=== PATIENT | female | born 2000 | race Caucasian/White ===

== ENCOUNTER 2024-01-21 05:58 | Emergency (ER) | payer OTHER, SELFPAY ==
[2024-01-21 06:03] VITALS: BP 101/61; PULSE 74; RESP 16; TEMP 36.9; O2SAT 98; BMI 24.6
--- NOTE | 2024-01-21 06:09 | ED_ITS ---
HPI - Abdominal Pain General Time Seen by Provider: 06:09 <Santos Coleman MD - Last Filed: 01/21/24 07:59> Date Seen: 01/21/24 <Santos Coleman MD - Last Filed: 01/21/24 07:59> Chief Complaint: Abdominal Pain <Santos Coleman MD - Last Filed: 01/21/24 07:59> Stated Complaint: Abdominal pain, nausea <Santos Coleman MD - Last Filed: 01/21/24 07:59> Time Seen by Provider: 01/21/24 06:08 <Santos Coleman MD - Last Filed: 01/21/24 07:59> Source: patient, RN notes reviewed and old records reviewed <Santos Coleman MD - Last Filed: 01/21/24 07:59> Mode of arrival: ambulatory <Santos Coleman MD - Last Filed: 01/21/24 07:59> Limitations: no limitations <Santos Coleman MD - Last Filed: 01/21/24 07:59> History of Present Illness HPI narrative: 23-year-old female who comes in today with abdominal pain. She describes cramping low abdominal pain that woke her this morning. She reports this is somewhat similar to menstrual cramps but much more severe. She has some nausea but no vomiting. Has not taken anything for this. Denies urinary symptoms, diarrhea, or constipation. She does note that she ate a couple small pieces summer all mushrooms that some friends found. <Santos Coleman MD - Last Filed: 01/21/24 07:59> Related Data Home Medications: Previous Rx's Medication Instructions Recorded ketorolac 10 mg tablet 10 mg PO Q8H 5 days #15 tabs 01/21/24 <Santos Coleman MD - Last Filed: 01/21/24 07:59> Allergies/Adverse Reactions: Allergies Allergy/AdvReac Type Severity Reaction Status Date / Time No Known Drug Allergies Allergy Verified 01/21/24 06:06 <Santos Coleman MD - Last Filed: 01/21/24 07:59> PFS PFSH Social History: Social History Smoking Status: Never smoker How often do you have a drink containing alcohol: monthly or less AUDIT-C Alcohol total score: 1 Non-prescribed substance use: denies use <Santos Coleman MD - Last Filed: 01/21/24 07:59> Exam Narrative: Exam Narrative: General: Well-developed and well-nourished, no acute distress Head: Atraumatic and normocephalic Eyes: Pupils are equal reactive, extraocular motions intact, conjunctiva clear ENT: External nose and ears are normal, posterior pharynx without erythema or exudate Neck: No midline cervical tenderness, full spontaneous range of motion the neck, trachea midline, no adenopathy Heart: Regular rate and rhythm no murmurs or thrills Lungs: Clear to auscultation bilaterally without wheezes or crackles Abdomen: Soft, suprapubic tenderness and bilateral lower quadrant tenderness, nondistended with active bowel sounds Musculoskeletal: No tenderness, deformity, or edema Neurologic: Awake, alert, and oriented x3, no gross focal neurologic deficits, cranial nerves intact as tested Psych: Mood and affect are appropriate Skin: No rashes <Santos Coleman MD - Last Filed: 01/21/24 07:59> Const: Vital Signs, click to edit/add: Vital Signs - 24 hr 01/21/24 06:03 Temperature 98.4 F Pulse Rate [Pulse Oximeter] 74 Respiratory Rate 16 Blood Pressure [Ri ght Upper Arm] 101/61 Pulse Oximetry 98 Oxygen Delivery Me thod Room Air <Santos Coleman MD - Last Filed: 01/21/24 07:59> Vital Signs, click to edit/add: Vital Signs - 24 hr 01/21/24 06:03 Temperature 98.4 F Pulse Rate [Pulse Oximeter] 74 Respiratory Rate 16 Blood Pressure [Ri ght Upper Arm] 101/61 Pulse Oximetry 98 Oxygen Delivery Me thod Room Air <Peter Mccauley MD - Last Filed: 01/21/24 08:57> Course Course ED Course: Patient seen and examined, prior records reviewed. Patient presents today with low abdominal pain along with some nausea. She describes pain as cramping. On exam here, patient's vital is stable, no apparent distress but does have bilateral lower abdominal tenderness and suprapubic tenderness. Labs ordered and CT scan initially, however uterine ovarian pathology also possible so consider follow-up ultrasound if CT scan does not demonstrate acute findings to explain symptoms. <Santos Coleman MD - Last Filed: 01/21/24 07:59> Reevaluation(s) Time of Reevaluation #1: 06:47 <Santos Coleman MD - Last Filed: 01/21/24 07:59> Reevaluation #1: Labs ordered in panel interpreted by me with normal CBC, normal basic panel, negative test, no evidence for urinary tract infection. <Santos Coleman MD - Last Filed: 01/21/24 07:59> Time of Reevaluation #2: 07:58 <Santos Coleman MD - Last Filed: 01/21/24 07:59> Reevaluation #2: Radiology interpretation CT scan with 2.4 cm right adnexal cyst, pelvic free-fluid peritoneal enhancement which could be related to ruptured cyst versus inflammatory process. Ultrasound ordered and sign out to oncoming provider. Updated patient with findings so far with, plan for ultrasound. Pain is improved. <Santos Coleman MD - Last Filed: 01/21/24 07:59> Vital Signs Vital signs: Initial Vital Signs Temperature 98.4 F 01/21/24 06:03 Temperature Source Temporal Artery Scan 01/21/24 06:03 Pulse Rate 74 01/21/24 06:03 Respiratory Rate 16 01/21/24 06:03 Blood Pressure 101/61 01/21/24 06:03 Blood Pressure Mean 74 01/21/24 06:03 Blood Pressure Position Sitting 01/21/24 06:03 Pulse Oximetry 98 01/21/24 06:03 Oxygen Delivery Method Room Air 01/21/24 06:03 Vital Signs Temperature 98.4 F 01/21/24 06:03 Pulse Rate 74 01/21/24 06:03 Respiratory Rate 16 01/21/24 06:03 Blood Pressure 101/61 01/21/24 06:03 Pulse Oximetry 98 01/21/24 06:03 Oxygen Delivery Method Room Air 01/21/24 06:03 Temperature 98.4 F 01/21/24 06:03 Pulse Rate 74 01/21/24 06:03 Respiratory Rate 16 01/21/24 06:03 Blood Pressure 101/61 01/21/24 06:03 Pulse Oximetry 98 01/21/24 06:03 Oxygen Delivery Method Room Air 01/21/24 06:03 <Santos Coleman MD - Last Filed: 01/21/24 07:59> Initial Vital Signs Temperature 98.4 F 01/21/24 06:03 Temperature Source Temporal Artery Scan 01/21/24 06:03 Pulse Rate 74 01/21/24 06:03 Respiratory Rate 16 01/21/24 06:03 Blood Pressure 101/61 01/21/24 06:03 Blood Pressure Mean 74 01/21/24 06:03 Blood Pressure Position Sitting 01/21/24 06:03 Pulse Oximetry 98 01/21/24 06:03 Oxygen Delivery Method Room Air 01/21/24 06:03 Vital Signs Temperature 98.4 F 01/21/24 06:03 Pulse Rate 74 01/21/24 06:03 Respiratory Rate 16 01/21/24 06:03 Blood Pressure 101/61 01/21/24 06:03 Pulse Oximetry 98 01/21/24 06:03 Oxygen Delivery Method Room Air 01/21/24 06:03 Temperature 98.4 F 01/21/24 06:03 Pulse Rate 74 01/21/24 06:03 Respiratory Rate 16 01/21/24 06:03 Blood Pressure 101/61 01/21/24 06:03 Pulse Oximetry 98 01/21/24 06:03 Oxygen Delivery Method Room Air 01/21/24 06:03 <Peter Mccauley MD - Last Filed: 01/21/24 08:57> Medications Administered Medications: Discontinued Medications Generic Name Dose Route Start Last Admin Trade Name Freq PRN Reason Stop Dose Admin Ketorolac Tromethamine 15 mg 01/21/24 06:16 01/21/24 06:20 Ketorolac 15 Mg/Ml Inj IVP 01/21/24 06:17 15 mg ONCE ONE Administration Ondansetron HCl 4 mg 01/21/24 06:16 01/21/24 06:20 Ondansetron 2 Mg/Ml Inj IVP 01/21/24 06:17 4 mg ONCE ONE Administration <Santos Coleman MD - Last Filed: 01/21/24 07:59> Discontinued Medications Generic Name Dose Route Start Last Admin Trade Name Freq PRN Reason Stop Dose Admin Ketorolac Tromethamine 15 mg 01/21/24 06:16 01/21/24 06:20 Ketorolac 15 Mg/Ml Inj IVP 01/21/24 06:17 15 mg ONCE ONE Administration Ondansetron HCl 4 mg 01/21/24 06:16 01/21/24 06:20 Ondansetron 2 Mg/Ml Inj IVP 01/21/24 06:17 4 mg ONCE ONE Administration <Peter Mccauley MD - Last Filed: 01/21/24 08:57> MDM - Abdominal Pain MDM Narrative Medical decision making narrative: Care for this patient was transferred to pa at the end of Dr. Coleman's shift. An ultrasound of the pelvis is obtained by transvaginal approach and does show evidence of a hemorrhagic cyst on the left side. There is no other complication her findings of concern. Patient is okay to be discharged home. She did receive a prescription for Toradol. Dr. Guzman Mccauley <Peter Mccauley MD - Last Filed: 01/21/24 08:57> Lab Data Labs: Lab Results 01/21/24 01/21/24 01/21/24 Range/Units 06:16 06:20 06:25 WBC 7.97 (4.50-11.00) K/uL RBC 4.45 (4.00-5.20) m/uL Hgb 13.9 (12.0-16.0) gm/dL Hct 40.6 (33.0-51.0) % MCV 91 (80-100) fL MCH 31 (26-34) pg MCHC 34 (32-36) gm/dL RDW Coeff of Nelson 13.0 (11.5-15.5) % Plt Count 225 (140-440) K/uL Neut % (Auto) 46.7 (42.0-72.0) % Lymph % (Auto) 45.0 H (20-44) % [place] % (Auto) 5.6 (0.0-11.0) % Eos % (Auto) 1.8 (0.0-7.0) % Baso % (Auto) 0.3 (0.0-3.0) % Neut # (Auto) 3.72 (1.7-7.0) K/uL Lymph # (Auto) 3.60 H (0.90-2.90) K/uL [place] # (Auto) 0.40 (0.00-0.90) K/UL Eos # (Auto) 0.14 (0.00-0.50) K/uL Baso # (Auto) 0.02 (0.00-0.30) K/uL Abs Immat Gran (auto) 0.05 (0.00-0.30) K/uL Imm/Tot Granulo (auto) 0.6 % Sodium 140 (135-149) mmol/L Potassium 4.2 (3.6-5.1) mmol/L Chloride 106 (96-114) mmol/L Carbon Dioxide 26 (20-32) mmol/L Anion Gap 8 (7-15) mEq/L BUN 14 (5-24) mg/dL Creatinine 0.6 (0.5-1.5) mg/dL Estimated Creat Clear 111.92 Estimated GFR 131 ml/min Glucose 109 (60-115) mg/dL Calcium 8.8 (8.4-10.6) mg/dL HCG, Qual Cancelled Urine Color Yellow (Yellow) Urine Appearance Clear (Clear) Urine pH 6.0 (5.0-8.5) Ur Specific [place] 1.015 (1.000-1.030) Urine Protein Negative (Negative) Urine Glucose (UA) Negative (Negative) Urine Ketones Negative (Negative) Urine Blood Negative (Negative) Urine Nitrite Negative (Negative) Urine Bilirubin Negative (Negative) Urine Urobilinogen 0.2 (0.2-1.0) Ur Leukocyte Esterase Negative (Negative) Urine RBC 0-2 (0-2) Urine WBC 0-2 (0-5) Ur Squamous Epith Cells Few (None-Few) Urine Bacteria Few A (None) Urine HCG, Qual Negative (Negative) <Santos Coleman MD - Last Filed: 01/21/24 07:59> Lab Results 01/21/24 01/21/24 01/21/24 Range/Units 06:16 06:20 06:25 WBC 7.97 (4.50-11.00) K/uL RBC 4.45 (4.00-5.20) m/uL Hgb 13.9 (12.0-16.0) gm/dL Hct 40.6 (33.0-51.0) % MCV 91 (80-100) fL MCH 31 (26-34) pg MCHC 34 (32-36) gm/dL RDW Coeff of Nelson 13.0 (11.5-15.5) % Plt Count 225 (140-440) K/uL Neut % (Auto) 46.7 (42.0-72.0) % Lymph % (Auto) 45.0 H (20-44) % [place] % (Auto) 5.6 (0.0-11.0) % Eos % (Auto) 1.8 (0.0-7.0) % Baso % (Auto) 0.3 (0.0-3.0) % Neut # (Auto) 3.72 (1.7-7.0) K/uL Lymph # (Auto) 3.60 H (0.90-2.90) K/uL [place] # (Auto) 0.40 (0.00-0.90) K/UL Eos # (Auto) 0.14 (0.00-0.50) K/uL Baso # (Auto) 0.02 (0.00-0.30) K/uL Abs Immat Gran (auto) 0.05 (0.00-0.30) K/uL Imm/Tot Granulo (auto) 0.6 % Sodium 140 (135-149) mmol/L Potassium 4.2 (3.6-5.1) mmol/L Chloride 106 (96-114) mmol/L Carbon Dioxide 26 (20-32) mmol/L Anion Gap 8 (7-15) mEq/L BUN 14 (5-24) mg/dL Creatinine 0.6 (0.5-1.5) mg/dL Estimated Creat Clear 111.92 Estimated GFR 131 ml/min Glucose 109 (60-115) mg/dL Calcium 8.8 (8.4-10.6) mg/dL HCG, Qual Cancelled Urine Color Yellow (Yellow) Urine Appearance Clear (Clear) Urine pH 6.0 (5.0-8.5) Ur Specific [place] 1.015 (1.000-1.030) Urine Protein Negative (Negative) Urine Glucose (UA) Negative (Negative) Urine Ketones Negative (Negative) Urine Blood Negative (Negative) Urine Nitrite Negative (Negative) Urine Bilirubin Negative (Negative) Urine Urobilinogen 0.2 (0.2-1.0) Ur Leukocyte Esterase Negative (Negative) Urine RBC 0-2 (0-2) Urine WBC 0-2 (0-5) Ur Squamous Epith Cells Few (None-Few) Urine Bacteria Few A (None) Urine HCG, Qual Negative (Negative) <Peter Mccauley MD - Last Filed: 01/21/24 08:57> Discharge Plan Discharge Clinical Impression: Ruptured cyst of left ovary <Santos Coleman MD - Last Filed: 01/21/24 07:59> Patient Disposition: Home, Self-Care <Santos Coleman MD - Last Filed: 01/21/24 07:59> Condition: Improved <Santos Coleman MD - Last Filed: 01/21/24 07:59> Additional Instructions: Take medication as needed and indicated. Follow-up with OBGYN Clinic if not improving or worsening. <Santos Coleman MD - Last Filed: 01/21/24 07:59> Prescriptions: New ketorolac 10 mg tablet 10 mg PO Q8H 5 Days Qty: 15 0RF <Santos Coleman MD - Last Filed: 01/21/24 07:59> Follow Up/Referrals: Provider,Not a Local [Primary Care Provider] - <Santos Coleman MD - Last Filed: 01/21/24 07:59> Stand Alone Forms: [employer] Info Instructions <Santos Coleman MD - Last Filed: 01/21/24 07:59>
--- NOTE | 2024-01-21 06:16 | CT_ITS ---
Patient: MAC ODOM Facility:?[facility] Patient ID:?[id number] Site Patient ID:?[id number]. Site :?2002 Study:?CT-Abdomen/Pelvis W/64CC [id number]/18/2024 7:07:02 AM Ordering Physician:WANDA Final Report: INDICATION: Low abdomen pain TECHNIQUE: CT abdomen and pelvis acquired with 64 mL Isovue 370 IV contrast. COMPARISON: None. FINDINGS: Lower chest: Unremarkable. Liver: Unremarkable. Normal in size and attenuation. No masses. Gallbladder and bile ducts: Unremarkable. No stones or inflammation. No biliary dilatation. Pancreas: Unremarkable. No mass or inflammation. Spleen: Unremarkable. Normal in size. No masses. Adrenal glands: Unremarkable. No nodules. Kidneys: Unremarkable. No masses, stones, or hydronephrosis. GI tract: Unremarkable. Normal in caliber. No sign of mass or inflammation. Appendix is not clearly visible. Vasculature: Unremarkable. Mesenteric arteries are patent. Lymph nodes: No lymphadenopathy. Omentum/Peritoneum/Abdominal Wall: Small to moderate pelvic free fluid with some enhancement of the surrounding peritoneum. Pelvis: Subtle 2.4 cm right adnexal cyst image 105 series 2. IUD in the uterus. Bones: Unremarkable for age. IMPRESSION: 1. Pelvic free fluid and peritoneal enhancement and subtle right adnexal cyst. Findings could indicate a ruptured cyst or pelvic inflammatory process. Recommend pelvic ultrasound. Please note that all CT scans at this facility use dose modulation, iterative reconstruction, and/or weight-based dosing when appropriate to reduce radiation dose to as low as reasonably achievable. Dictated by Umer Kaba MD @ 01/21/2024 7:51:16 AM Signed by:?Umer Kaba MD @01/21/2024 7:51:16 AM (Electronic Signature)
[2024-01-21] MEDS: ONDANSETRON 2 MG/ML inj 4 MG IVP (06:20)
[2024-01-21] MEDS: KETOROLAC 15 MG/ML inj IVP (06:20)
[2024-01-21 06:29] LABS: Appearance Urine Clear (Clear); Bilirubin Urine Negative (Negative); Blood Urine Negative (Negative); Color Urine Yellow (Yellow); Glucose Urine Negative (Negative); Ketones Urine Negative (Negative); Leukocyte Esterase Urine Negative (Negative); Nitrite Urine Negative (Negative); Protein Urine Negative (Negative); Specific Gravity Urine 1.015 (1.000-1.030); Urobilinogen Urine 0.2 (0.2-1.0)
[2024-01-21 06:33] LABS: Basophils Absolute Auto 0.02 K/uL (0.00-0.30); Basophils Percent Auto 0.3 % (0.0-3.0); Eosinophils Absolute Auto 0.14 K/uL (0.00-0.50); Eosinophils Percent Auto 1.8 % (0.0-7.0); Hematocrit 40.6 % (33.0-51.0); Hemoglobin* 13.9 gm/dL (12.0-16.0); Immature Granulocytes Abs Auto 0.05 K/uL (0.00-0.30); Immature Granulocytes Pct Auto 0.6 %; Mean Corpuscular HGB Conc 34 gm/dL (32-36); Mean Corpuscular Hemoglobin 31 pg (26-34); Mean Corpuscular Volume 91 fL (80-100); Monocytes Percent Auto 5.6 % (0.0-11.0); Neutrophils Absolute Auto 3.72 K/uL (1.7-7.0); Neutrophils Percent Auto 46.7 % (42.0-72.0); Platelet Count* 225 K/uL (140-440); Red Blood Count 4.45 m/uL (4.00-5.20); White Blood Count* 7.97 K/uL (4.50-11.00)
--- OUTSIDE RECORDS SUMMARY | 2024-01-21 06:35 | XMS_ITS | Clinical Summary ---
Author Name Unknown Organization [facility] Address [address] [address] Phone Care Team Providers Care Criminal Profiler Name Role Phone Unavailable Primary Care Provider Unavailabl e Allergies No known active allergies Medications Medication Sig Dispensed Refills Start Date End Date Status Levonorgestrel (MIRENA IU) Insert into the uterus. Active predniSONE (Deltasone) 20 MG tablet Take 2 Tablets by mouth one time a day. Take with food. 10 Tablet 04/19/2023 Active Active Problems No known active problems Social History Tobacco Use Types Packs/Day Years Used Date Smoking Tobacco: Never Smokeless Tobacco: Never Tobacco Cessation:Counseling Given: Not Answered Sex and Gender Information Value Date Recorded Sex Assigned at Not on file Gender Identity Not on file Sexual Orientation Not on file Job Start Date Occupation Industry Not on file Not on file Not on file Obstetrics History Last Filed Vital Signs Vital Sign Reading Time Taken Comments Blood Pressure 108/67 04/19/2023 3:16 PM CDT Pulse 57 04/19/2023 3:16 PM CDT Temperature 36.8 ??C (98.3 ??F) 04/19/2023 3:16 PM CD T Respiratory Rate 16 04/19/2023 3:16 PM CDT Oxygen Saturation 98% 04/19/2023 3:16 PM CDT Inhaled Oxygen Concentration - - Weight 59 kg (130 lb) 04/19/2023 4:01 PM CDT Height 154.9 cm (5' 1) 04/19/2023 4:01 PM CDT Body Mass Index 24.56 04/19/2023 4:01 PM CDT Plan of Treatment Health Maintenance Due Date Last Done Comments Cervical Cancer Screening 2002 Last pap w/ HPV Testing 2002 Last pap w/o HPV Testing 2002 COVID-19 Vaccine (#1) 2007 HPV Vaccine (Standing Order) (1 - 3-dose series) 2017 Chlamydia Screening 2018 Hepatitis B Vaccine (Standin g Order) (1 of 3 - 19+ 3-dose series) 2021 PERTUSSIS (Standing Order) 2021 TETANUS (Standing Order) 2021 Influenza Vaccine Seasonal (Standing Order) (#1) 2023 Pneumococcal/PCV20 Vaccine: Pediatrics (2-5 yrs) and At-Risk Patients (6-64 yrs) (Standing Order) Aged Out No longer eligible b ased on patient's age to complete this topic Insurance Payer Benefit Plan / Group Subscriber ID Effective Dates Phone Address Type GENERIC COMMERCIAL GENERIC COMMERCIAL OON [id number] 2023-01/05 [address] [place] [address] [place] [address] Tracy Newby Personal/Family Self 2000 [address] [place] [address], [place] [address]
--- OUTSIDE RECORDS SUMMARY | 2024-01-21 06:35 | XMS_ITS | Continuity of Care Document ---
Author Name Unknown Organization [facility] Address [address] [place] [address] Phone Care Team Providers Care Saas Architect Name Role Phone Nerissa Dunbar OD Unavailable Unavailable Allergies, Adverse Reactions, Alerts Substance Reaction Status Criticality No Known Allergies Active No Inform ation Medications Medication Instructions Dosage Effective Dates (start - stop) Status Comments No Drug Therapy Prescribed Procedures Procedure Date OFFICE/OUTPATIENT VISIT, EST REFRACTION No Charge EYE EXAM ESTABLISHED PAT REFRACTION No Charge COMPREHENSIVE EXAM REFRACTION EYE EXAM, NEW PATIENT REFRACTION Advance Directives Directive Yes / No Effective Date File Name No Information Encounters Encounter Description Practice Location Reason(s) For Visit Diagnoses Date Provider Providers Copied on Encounter OFFICE/OUTPA TIENT VISIT, EST [facility], [address] [place], [place], [facility], tel:[phone] [facility] routine vision exam, (chief complaint) Visual discomfort, bilateral Sep-0 8-202 2 Manjinder Multani. [facility], [address] [place], [address], [place]. tel:[phone] [facility], [address] [place], [place], [facility], [place] tel:[phone] [place] Routine exam (chief complaint) Hypermetropia , bilateral Oct-2 3-201 5 Tomeka Combs. [facility], [address] [place], [address], [place]. tel:[phone] Referring Provider: Garret Olsen, [facility] [address] [place], [place], [facility] hospital. tel:[phone] [facility], [address] [place] [address], [facility], tel:[phone] [facility] vision without complaints (chief complaint) Refractive Error UnspecifiedRe fractive Error UnspecifiedEx amination of eyes and visionExamina tion of eyes and visionGlaucom a ScreeningGlau coma Screening 3 Kim Charles. [facility], [address] [place], [place], Critical access hospital, . tel:[phone] [facility], [address] [place], [place], [facility], tel:[phone] [place] No Information 0 Marcelino Almaguer. [facility], [address] [place] [address], Critical access hospital, . tel:[phone] Referring Provider: Ernestine Coelho, [facility] [address], [place], [address]. tel:[phone] Family History Family Member Type Diagnosis Age At Onset No Information Payers Payer name Insurance type Covered libertarian ID Authorlianea fallon(s) [facility] Health Plan CI [id number] Social History Type Description Quantity Date Captured Comments Alcohol Use Details Unknown Caffeine Use Details Unknown Tobacco Use Status Current non-smoker Smoking Status Never smoker Non-Smoking Tobacco Use Details : No Details Available : No Details Available Sex Female Chief Complaint And Reason For Visit From encounter dated '05/13/2022 14:40'. routine vision exam, (chief complaint). Description: The 22 year old female presents for evaluationof routine vision exam, in the right eye and left eye. MAVIS about 7 years ago. Pt wears no corrective lens. Pt states vision seems stable. Pt would like gls rx only if needed. Pt brings up that she feels in the last year her eyes feel more light sensitive than usual. Pt feels some eye pain from the sun after spending time outdoors about once a month. There are no other visitor ocular complaints. COVID 19 Protocol: Upon entry into the office, the patient denied any present illnesses or possible COVID exposures prior to being checked in for their appointment. Patient was advised that a face maskmust be worn for the duration of the appointment. Reason For Referral Reason For Referral No Information History Of Present Illness Encounter Date Complaint History Of Prese nt Illness routine vision exam, The 22 year old female presents for evaluation of routine vision exam, in the right eye and left eye. MAVIS about 7 years ago. Pt wears no corrective lens. Pt states vision seems stable. Pt would like gls rx only if needed. Pt brings up that she feels in the last year her eyes feel more light sensitive than usual. Pt feels some eye pain from the sun after spending time outdoors about once a month. There are no other visitor ocular complaints. COVID 19 Protocol: Upon entry into the office, the patient denied any present illnesses or possible COVID exposures prior to being checked in for their appointment. Patient was advised that a face mask must be worn for the duration of the appointment. Routine exam The 15 year 5 mo nth old female presents for evaluation of Routine exam in the right eye and left eye. It started about 2 year(s) ago. It affects neither distance or near vision. The condition is stable. Functional Status Date Functional Assessmen t No Information Medications Administered Medication Instructions Dosage Effective Dates (start - stop) Status Comments No Drug Therapy Prescribed Instructions Date Instruction Additional Infor kenrick Impression/Plan Related to Visua l discomfort, bilateral Return in 1-2 years with Garret Eckert OD for Complete Exam. Related to Hypermetropia, bilateral Follow up - Return i n 1-2 years with Garret Eckert OD for Complete Exam. Related to Hypermetropia, bilateral Impression/Plan - Mi ld, non-amblyogenic refractive error not interfering with daily function. No new glasses required at this time. Normal ocular alignment and health. Monitor annually. Related to Hypermetropia, bilateral - Return in 2 years with Melvin Alvarez MD for Complete Exam. Related to Refractive Error Unspecified Refractive Error Uns pecified OU Condition: stable. Examination of eyes and vision OU Condition: stable. Glaucoma Screening OU Condition: stable. - Educational materials provided.minimal rx - no glasses necessary Refractive error. very mild Related to Refractive Error Unspecified Assessments Type Assessment Date assessment Visual discomfort, bilateral Jun impression Visual discomfort, bilateral: H5 3.143 Patient Care Teams Name Effective Dates (start - stop) Status Members No Information
--- OUTSIDE RECORDS SUMMARY | 2024-01-21 06:36 | XMS_ITS | Continuity of Care Document ---
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 Name Role Phone Geneva Youssef MD Unavailable Unavailable Allergies, Adverse Reactions, Alerts Substance Reaction Status Criticality No Known Allergies Active No Inform ation Medications Medication Instructions Dosage Effective Dates (start - stop) Status Comments Mirena 21 mcg/24 hours (8 yrs) 52 mg intrauterine device Use as directed - Active Plac ed april, propranolol 10 mg tablet take 1 Tablet by oral route 2 times every day as needed for anxiety - Active Procedures Procedure Date TD VACCINE >7 IM PREV VISIT, EST, AGE 18-39 OFFICE/OUTPATIENT VISIT, NEW X-RAY EXAM HIP UNI 2-3 VIEWS STREP A, DNA, AMP PROBE COVID-19 Amplified Probe Technique OFFICE/OUTPATIENT VISIT, EST Meningococcal Vaccine, Serogroup B, 2 Do se IM OFFICE/OUTPATIENT VISIT, EST OFFICE/OUTPATIENT VISIT, EST OFFICE/OUTPATIENT VISIT, EST COVID-19 Amplified Probe Technique OFFICE/OUTPATIENT VISIT, EST Meningococcal Vaccine, Serogroup B, 2 Do se IM VISUAL ACUITY SCREEN Patient Health Risk Assessment Screening PREV VISIT, EST, AGE 18-39 MENINGOCOCCAL VACCINE, IM Patient Health Risk Assessment Screening PREV VISIT, EST, AGE 12-17 COMPLETE CBC, AUTOMATED ASSAY OF FERRITIN ASSAY OF FREE THYROXINE ASSAY THYROID STIM HORMONE ROUTINE VENIPUNCTURE COMPLETE CBC, AUTOMATED ASSAY OF FERRITIN ASSAY OF FREE THYROXINE ASSAY THYROID STIM HORMONE ASSAY OF VITAMIN D ROUTINE VENIPUNCTURE PREV VISIT, EST, AGE 12-17 MMR VACCINE, SC TB INTRADERMAL TEST COMPLETE CBC, AUTOMATED ASSAY OF FERRITIN ROUTINE VENIPUNCTURE Fluzone 5ml Multi-Dose > 3yr PREV VISIT, EST, AGE 12-17 Fluzone 5ml Multi-Dose > 3yr Gardasil-9 PREV VISIT, EST, AGE 12-17 OFFICE/OUTPATIENT VISIT, EST OFFICE/OUTPATIENT VISIT, EST STREP A AG, EIA CULTURE, BACTERIA, OTHER ASSAY OF FREE THYROXINE ASSAY THYROID STIM HORMONE ROUTINE VENIPUNCTURE Immunization Administration With [employer] H [place] VACC 3 DOSE IM Immunization Administration With [employer] P Free Fluzone Quad 3yrs And Older PREV VISIT, EST, AGE 12-17 ROUTINE VENIPUNCTURE OFFICE/OUTPATIENT VISIT, EST ASSAY OF FREE THYROXINE ASSAY THYROID STIM HORMONE ROUTINE VENIPUNCTURE ASSAY, BLD/SERUM CHOLESTEROL ROUTINE VENIPUNCTURE X-RAYS FOR BONE AGE PREV VISIT, EST, AGE 5-11 TDAP VACCINE >7 IM MENINGOCOCCAL VACCINE, IM Flu Mist DESTRUCT LESION, 1-14 As per patient privacy policy some of the clinical information may not be visible. Advance Directives Directive Yes / No Effective Date File Name No Information Encounters Encounter Description Practice Location Reason(s) For Visit Diagnoses Date Provider Providers Copied on Encounter , [facility] [place], [place], [address] [place] [address] , tel: [phone] [place] [address] No Information 4 Mikael Bean. [address] [place], [place], [id number], . tel:[phone] PREV VISIT, EST, AGE 18-39 , [address] [place], [place], [id number] , tel: [phone] [facility] * Physical/Pa p (chief complaint)* chronic conditions (chief complaint) Encounter for gynecological examination (general) (routine) without abnormal findingsHealth education/pet counselor ing 3 Mikael Bean. [address] [place], [place], [id number], . tel:[phone] Referring Provider: Geneva Cam, [address] [place] [address], [id number]. [phone] OFFICE/OUTPA TIENT VISIT, NEW , [address] [place], [place], [id number] , tel: [phone] [facility] * New To /Nati giron Care (chief complaint)* chronic conditions (chief complaint) Encounter for screening, unspecifiedAnti-T PO antibodies presentHealth education/pet counselor ing 3 Mikael Bean. [facility] [place], [place], [address] [place] [address], . tel: [phone] Referring Provider: Geneva Cam, [address] [place] [address], [id number]. tel: [phone] , [address] [place] [address], [address] [place] [address] , tel: [phone] [facility] No Information 3 Mikael Bean. [address] [place] [address], [address] [place] [address], . tel: [phone] , [address] [place] [address], [address] [place] [address] , tel: [phone] [facility] No Information 1 Aki Bennett. [address] [place] [address], Formerly [facility], . tel: [phone] Referring Provider: Sabrina Olsen, [address] [place] [place] [address], [facility]ly [facility]. tel: [phone] OFFICE/OUTPA TIENT VISIT, [facility], [address] [place] [address], [address] [place] [address] , tel: [phone] [facility] COVID Evaluation (chief complaint) Encounter For Screening For COVID 19Acute viral pharyngitisLeukoc ytosis, unspecified type 1 Steven Jaquez. [facility] [place], [place], [facility], . tel: [phone] Referring Provider: Leonid Baird, [address] [place] [address], [facility]. tel: [phone] OFFICE/OUTPA TIENT VISIT, [facility], [address] [place] [address], [address] [place] [address] , tel: [phone] [facility] *Discuss Poss Anemia (chief complaint) History of iron deficiencyAnti-TP O antibodies presentOligomenor london, unspecified typeCounseling and coordination of careLipid screening 1 Aki Bennett. [address] [place], [address], . [phone] Referring Provider: Sabrina Olsen, [address] [place] [address], [facility]. tel:[phone] OFFICE/OUTPA TIENT VISIT, [facility], [address] [place] [address], [id number] , tel: [phone] [facility] *abdominal pain after eating (chief complaint) Abdominal painGastroesophag eal reflux disease without esophagitis 1 Dharmesh February. [address] [place] [address], [id number], . [phone] Referring Provider: Februaryimone M, [address] [place] [address], [address]. tel:[phone] OFFICE/OUTPA TIENT VISIT, [facility], [address] [place] [address], [id number] , tel: [phone] [facility] Contact With And Suspected Exposure To COVID 19Encounter For Screening For COVID 19 1 Aki Bennett. [facility] [place], [place], [facility], . [phone] Referring Provider: Sabrina Olsen, [address] [place] [address], [address]. tel:[phone] OFFICE/OUTPA TIENT VISIT, [facility], [address] [place] [address], [id number] , tel:[phone] [facility] Contact With And Suspected Exposure To COVID 19Encounter For Screening For COVID 19 1 Dharmesh Yanira. [address] [place], [place], [id number], . tel:[phone] Referring Provider: Yanira Dharmesh M, [address] [place] [address], [id number]. tel:[phone] PREV VISIT, EST, AGE 18-39 [facility], [facility] [place], [place], [id number] , tel: [phone] [place] [address] *20 year well check (chief complaint) Encounter for general adult medical examination without abnormal findingsOligomeno rrhea, unspecified typeHistory of iron deficiencyAnti-TP O antibodies present 0 Aki Bennett. [address] [place] [address], [facility], [place]. tel: [phone] Referring Provider: Sabrina Olsen, [address] [place] [place] [address], [facility]. tel:[phone] , [address] [place] [address], [id number] , tel: [phone] [place] [address] No Information 9 Aki Bennett. [address] [place] [address], [facility], . tel: [phone] Referring Provider: Sabrina Olsen, [address] [place] [address], [facility]. tel:[phone] PREV VISIT, EST, AGE 12-17 , [address] [place] [address], [id number] , [place] tel: [phone] [facility] *19yr wcc (chief complaint) Encntr for routine child health exam w/o abnormal findingsOligomeno rrhea, unspecified typeDizzinessShor tness of breathHistory of iron deficiencyAnti-TP O antibodies present Sep-0 9 Aki Bennett. [facility] [place], [place], [facility], [place]. tel: [phone] Referring Provider: Sabrina Olsen, [address] [place] [address], [facility]. tel: [phone] , [address] [place], [place], [id number] , [place] tel: [phone] [facility] Other fatigue Sep-0 9 Cookie Bennett. [address], [place], [address], [place]. tel: [phone] Referring Provider: Sabrina Gary W, [address], [place], [address]. tel: [phone] , [address] [place], [place], [id number] , [place] tel: [phone] [facility] Other fatigue Cameron- 8 Aki Samsily. [address] [place], [place], [facility], . tel: [phone] Referring Provider: Sabrina Olsen, [facility] [place], [place], [facility]. tel: [phone] PREV VISIT, EST, AGE 12-17 , [facility], [place], [id number] , [place] tel: [phone] [facility] * 17 yr Well child (chief complaint) Encntr for routine child health exam w/o abnormal findings 8 Meliton Sinha. [address], [place], [address], [place]. tel: [phone] Referring Provider: Ernestine Moraes, [address], [place], [address]. tel: [phone] , [address] [facility], [place], [id number] , [place] tel: [phone] [facility] No Information 8 Meliton Sinha. [address], [place], [address], [place]. tel: [phone] Referring Provider: Ernestine Moraes, [address], [place], [address]. tel: [phone] , [address] [facility], [place], [id number] , [place] tel: [phone] [place] [address] *TB Test (chief complaint) Encounter for screening for respiratory tuberculosis 7 Meliton Sinha. [address], [place], [address], [place]. tel:[phone] Referring Provider: Ernestine Moraes, [address], [place], [address]. tel:[phone] , [facility], [place], [id number] , [place] tel: [phone] [place] [address] Encntr for routine child health exam w/o abnormal findings 7 eMliton Sinha. [address], [place], [address], [place]. tel:[phone] Referring Provider: Ernestine Moraes, [address], [place], [address]. tel:[phone] PREV VISIT, EST, AGE 12-17 , [facility], [place], [id number] , [place] tel: [phone] [place] [address] *16 year well child (chief complaint) Encntr for routine child health exam w/o abnormal findings 6 Meliton Sinha. [address], [place], [address], [place]. tel: [phone] Referring Provider: Ernestine Moraes, [address], [place], [address]. tel:[phone] PREV VISIT, EST, AGE 12-17 , [address] [facility], [place], [id number] , [place] tel: [phone] [place] [address] Well child (chief complaint)w ell (chief complaint) Encounter for well child exam with abnormal findingsEpigastri c painLeg length discrepancyPlanta r wart of left foot 5 Cookie Bennett. [address], [place], [address], [place]. tel: [phone] Referring Provider: Sabrina Lim, [address], [place], [address]. tel: [phone] OFFICE/OUTPA TIENT VISIT, EST , [address] [facility], [place], [id number] , [place] tel: [phone] [facility] sore throat (chief complaint) Acute pharyngitis, unspecified etiologyAcute pharyngitis due to other specified organisms 5 Meliton Sinha. [address], [place], [address], [place]. tel: [phone] Referring Provider: Ernestine Moraes, [address], [place], [address]. tel: [phone] , [address] [facility], [place], [id number] , [place] tel: [phone] [facility] Unspecified acquired hypothyroidism 5 Mleiton Sinha. [address], [place], [address], [place]. tel: [phone] Referring Provider: Ernestine Moraes, [address], [place], [address]. tel: [phone] PREV VISIT, EST, AGE 12-17 , [address] [facility], [place], [id number] , [place] tel: [phone] [facility] 14 y/o well check (chief complaint) No Information 4 Meliton Sinha. [address], [place], [address], [place]. tel: [phone] Referring Provider: Ernestine Moraes, [address], [place], [address]. tel: [phone] [facility], [facility], [place], [id number] , [place] tel: [phone] [facility] Unspecified acquired hypothyroidism Jun-0 3 Meliton Sinha. [address], [place], [address], [place]. tel: [phone] Referring Provider: Ernestine Moraes, [address], [place], [address]. tel: [phone] OFFICE/OUTPA TIENT VISIT, [facility], [address] [place] [address], [place], [id number] , [place] tel: [phone] [facility] No Information 3 Meliton Sinha. [address], [place], [address], [place]. tel:[phone] Referring Provider: Ernestine Moraes, [address], [place], [address]. tel:[phone] , [facility], [place], [id number] , [place] tel: [phone] [facility] Precocious sexual development and puberty, not elsewhere classifiedScreeni ng for other and unspecified cardiovascular conditions May-2 3 Meliton Sinha. [address], [place], [address], [place]. tel: [phone] Referring Provider: Ernestine Moraes, [address], [place], [address]. tel: [phone] [facility], [facility], [place], [id number] , [place] tel: [phone] [facility] No Information 3 Meliton Sinha. [address], [place], [address], [place]. tel: [phone] PREV VISIT, EST, AGE 5-11 , [facility], [place], [id number] , [place] tel: [phone] [facility] No Information Apr-0 3 Meliton Sinha. [address], [place], [address], [place]. tel: [phone] Referring Provider: Ernestine Moraes, [address], [place], [address]. tel: [phone] , [facility], [place], [id number] , [place] tel: [phone] [facility] Anxiety Apr-0 3 Meliton Sinha. [address], [place], [address], [place]. tel: [phone] [facility], [facility], [place], [id number] , [place] tel: [phone] [facility] No Information 2 Meliton Sinha. [address], [place], [address], [place]. tel: [phone] Referring Provider: Ernestine Moraes, [address], [place], [address]. tel: [phone] As per patient privacy policy some of the clinical information may not be visible. Family History Family Member Type Diagnosis Age At Onset Brother Problem (finding) Vesiculo Reflux Paternal grandfather Problem (finding) hypothyroidism Brother Problem (finding) GERD Paternal aunt Problem (finding) hypothyroidism Problem (finding) Family history of Barbara's thyroiditis Immunizations Vaccine Date Status Comments COVID Moderna Spikevax 12y+ administered Source: Other Registry Flu quadrivalent injectable pfree administered Source: Other Regist ry tetanus and diphtheria toxoids, adsorbed, preservative free, for adult use administered Note: given without incident ; Source: New Immunization Record COVID[address] 6 or 12y+ administered Source: Other Regist ry COVID19 Moderna Primary 12+ administered Source: Other Registry Bexsero administered Source: New Imm unization Record SARS-COV-2 (COVID-19) vaccin e, mRNA, spike protein, LNP, preservative free, 30 mcg/0.3mL dose administered Source: Other Provid er SARS-COV-2 (COVID-19) vaccin e, mRNA, spike protein, LNP, preservative free, 30 mcg/0.3mL dose administered Source: Other Provid er Bexsero administered Source: New Imm unization Record Flu recombinant injectable quad pfree administered Source: Other Regist ry Flu quadrivalent injectable administered Source: Other Registry MCV4 Menactra administered Source: New Im munization Record MMR administered Source: New Imm unization Record Flu quadrivalent injectable administered Source: Other Registry Influenza, injectable, quadrivalent, split virus, 3 years or older Fluzone Quad [id number] administered Source: New Immuniza tion Record influenza, injectable, quadrivalent, (3 years or older) administered Source: New Immuniza tion Record HPV (9-valent) administered Source: New I mmunization Record Influenza, injectable, quadrivalent, preservative free, 3 yrs or older administered Source: New Immuniz ation Record HPV administered Source: New Imm unization Record Typhoid-Oral administered Source: Other R egistry Flu quadrivalent nasal administered Sourc e: Other Registry Influenza virus vaccine, intranasal administered Source: New Immuniza tion Record MCV4 administered Source: New Imm unization Record Tdap administered Source: New Imm unization Record Influenza virus vaccine, intranasal administered Source: New Immuniza tion Record flu (split) (3 yrs or older) administered Source: New Immunization Record Cesnkomhd-[id number] administered Source: Ot her Registry [id number] administered Source: Ot her Registry varicella administered Source: New Imm unization Record Varicella administered Source: Other R egistry MMR administered Source: New Imm unization Record polio, inactivated (IPV) administered Kristina rce: New Immunization Record DTaP administered Source: New Imm unization Record Flu split virus administered Source: Othe r Registry flu (split) (3 yrs or older) preservative free administered Source: New Immuniza tion Record hep A (ped/adol, 2 dose) administered Kristina rce: New Immunization Record hep A (ped/adol, 2 dose) administered Kristina rce: New Immunization Record Flu split virus administered Source: Othe r Registry DTaP administered Source: New Imm unization Record Flu split virus administered Source: [place]the r Registry MMR administered Source: Other P rovider varicella administered Source: New Imm unization Record Pneumo (under 5) (PCV7) administered Sour ce: New Immunization Record Comvax r administered Source: New Imm unization Record polio, inactivated (IPV) administered Kristina rce: New Immunization Record Pneumo (under 5) (PCV7) administered Sour ce: New Immunization Record DTaP administered Source: New Imm unization Record HepB, NOS administered Source: Other R egistry Pneumo (under 5) (PCV7) administered Sour ce: New Immunization Record Comvax r administered Source: New Imm unization Record polio, inactivated (IPV) administered Kristina rce: New Immunization Record DTaP administered Source: New Imm unization Record Pneumo (under 5) (PCV7) administered Sour ce: New Immunization Record Comvax r administered Source: New Imm unization Record polio, inactivated (IPV) administered Kristina rce: New Immunization Record DTaP administered Source: New Imm unization Record Payers Payer name Insurance type Covered libertarian ID Authoriza tidominga(s) [employer] CI [id number] [employer] CI [id number] [employer] CI [id number] [employer] [id number] [employer] [id number] [employer] [id number] [employer] CI [id number] [employer] [id number] Social History Type Description Quantity Date Captured Comments Sex Female Smoking Status No Information Chief Complaint And Reason For Visit No Information Reason For Referral Reason For Referral No Information History Of Present Illness Encounter Date Complaint History Of Prese nt Illness * chronic conditions Tracy is a [age]-year-old female here for a gynecologic exam. She is currently sexually active with the same partner for the last 6 months. She has had multiple sexual partners. She is 0, para 0. No history of sexually transmitted infection. She has a Mirena IUD in place. She does not menstruate at all. She denies vaginal discharge, vaginal lesion or breast mass. 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 She has a long history of anxiety and has anti-TPO antibodies present. 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 She has paperwork with her that needs to be completed prior to leaving.Anxiety. This was diagnosed in third grade. She is never taken any medications. She does see a therapist occasionally but not recently. She is interested in having a prescription for propranolol to be used on an as-needed basis. Her anxiety tends to crop up in social situations. She has never had an outright panic attack or been to the emergency department for treatment. She would anticipate using propranolol about twice a month.Anti-TPO antibody positivity. Blood tests were done prior to this appointment and she is again positive. TSH and free T4 are within normal limits at 1.7 and 1.07 respectively. * New To Dr/Establish Care COVID Evaluation [facility]en james [facility] in [facility] sore throat, headache, fatigueHPI:1) for 2 to 3 days she has had sore throat, achiness, fatigue, headache. No fever. She had a previous illness that was similar for 2 days when she was in [place] almost 1 month ago. She got better she flew home and then had been doing fine for at least 2 weeks before she started feeling crummy again. Last menstrual period around March 13. Not sexually active. No sick contacts. No loss of smell or taste. Has a little tickle in her throat but no chest cough. No rashes. No other symptoms. No trismus. Odynophagia no dysphagia.2) she was wondering about why she had an elevated white blood cell count on her screening labs done earlier in March but she was sick a week prior to getting the labs done. No persistent night sweats or fevers. No recurrent illnesses other than the one prior illness when she was in [place].Review of systems as abovePast medical history anxiety, iron deficiencyMedications: Iron sulfateNo known drug allergiesShe is vaccinated against CovidSoc - sick contacts denied. She only is seeing her parents and she dog sits people in the neighborhood but does not have any direct covid exposures. -However, there is coronavirus in [place]-travel a few weeks ago as above Physical examination:Vital signs reviewed in chart.NCAT, anicteric sclera, no conjunctivitisNares without coryza or discharge Oropharnyx - moist mucus membranes, tonsils pink not red. No exudate. Right tonsil 2+ almost 3+, left tonsil 1+. No palatal or uvular deviation. No signs of abscess. No drainageTMs normalNeck - soft, supple. Lymphnodes normalCV - RRR no m/r/gLungs - CTAB no w/r/c abd soft NTND + BS. no HSMNeurologically grossly normalDerm - no rashesAssessment and plan:Acute viral pharyngitis. Rapid strep PCR negative. Rapid Covid negative. Send out PCR Covid testing indicated and sent. No signs of tonsillar abscess. I doubt that this is infectious mononucleosis.Counseled on testing, isolation, return to activities. Counseled on supportive care.Counseled on reasons to f/uF/u PEDRO LUISrayo asked about her recent leukocytosis. Mild leukocytosis with white blood cell count of 14 about 1 week after presumable viral illness. Now that she is sick it is not worth rechecking again. No B symptoms or signs of persistent bacterial infection. Hold off on testing now. She can call back and request CBC repeated in the office 1 month after she has been healthy. *Discuss Poss Anemia Here by damian gutierrez for visit prior to college. Will be attending [employer]. Excited. Needs Bexsero #2.Also will be doing running/soccer and would like ferritin checked. H/o thyroid disease in family, would like thyroid studies checked. Has never had lipids screened. Previously took Vit D for deficiency, and interested in rechecking this. Has paraguard (followed by music orchestrator) for menstrual management. Not sexually active. H/o anxiety, not currently seeing a therapist. Planning on finding one at [place] to help with transition. Otherwise, managing well. Has received her two COVID vaccines -- fully vaccinated. Needs paperwork completed. Normal NBS -- so no additional sickle cell testing needed. No TB risk factors. Otherwise, doing well. No other concerns or questions. ROS:Negative. *abdominal pain after eating SUB JECTIVE:Tracy is a 21-year-old here with mom with 1 week of epigastric abdominal squeezing pain that lasts about an hour and comes 1-3 times a day. It is worse after eating, especially breakfast time, and the only time she gets the pain is after meals. It happens after about 65% of meals, and the pain is a 5-7 out of 10. The pain is better with time. She has associated nausea. No vomiting, diarrhea, blood in the stool, cough, fever, or taste of old food. She does not smoke or drink alcohol. The pain does not wake her in the nighttime. Her stools are shaped like snakes and do not feel stuck. She poops once a day. The pain is not worse with acidic foods. She has had a menstrual cycle for 3 days, and it is a routine period. She has a copper IUD that was placed in June 2020, and she has no history of sexual relations. Her only medication includes occasional iron. Family history is notable for dad with unspecified bowel issues. Tracy will be leaving in 2 days for [place]. She wanted to get the belly pain checked out before her trip. She is just wrapping up a gap year after graduating from [employer]. She will be heading to [employer] this fall and is considering studying psychology. She will be running cross-country and track in college. 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 She has a checkup with Dr. Prabhakar on March 11. OBJECTIVE:Bilateral TMs, oropharynx, neck, cardiovascular, and pulmonary exams normal, abdominal exam no hepatosplenomegaly or masses, mild discomfort in the epigastric area, no guarding or rebound ASSESSMENT:Abdominal pain, suspect gastroesophageal reflux PLAN:I recommended Prilosec 20 mg delayed release 1 p.o. every morning given 30 minutes before a meal. If she is better, she will taper off the medicine in 1 to 2 months. Up-to-date recommendations for symptomatic treatment for reflux were reviewed. She will try chewing sugar-free gum. I encouraged her to remain upright an hour after meals and avoid acidic and fatty foods. If she worsens or is not better with this treatment plan, I recommended consultation with Dr. Prabhakar. Total time spent on the date of service was 40 minutes. Time spent includes but is not limited to: reviewing records before the visit, obtaining the history, performing a medically appropriate examination, prescribing medication, care coordination, time spent counseling the patient and/or caregiver, and documentation in the electronic medical record. *20 year well check Here by self .No specific concerns.H/o anti-TPO antibody, but normal TSH and fT4. FHx of hypothyroidism. Labs checked prior to visit. H/o menorrhagia and irregular (Q 6 weeks) periods. [facility] par[facility]/2020 as she was worried about hormones. Has had one period and it was ok. Not sexually active. Has a h/o anxiety, used to have a therapist, but now needs a new one. Has some unhealthy thoughts about food but denies binging or purging or restricting. But does feel guilty if eating too much. Training for a half marathon with her sister, but denies excessive exercise. Would love to talk to therapist about all of this. No breast concerns, but would like a breast exam today to be reassured that she has normal breast tissue. Taking a gap year. Got into [place] - may reapply to [employer]. Healthy eater - eating wide variety of foods. Likes to cook.No issues with sleep. No problems voiding or stooling. No substance use. [facility] - flu shotPHQ - 3, no SI or self harm, rated not difficult at all.Craft -negativePt cell - [phone] *19yr wcc Here with mom fo r [facility]. Most of visit with mom and Tracy together, but last part of visit with Tracy alone. Mom asked to speak with me alone prior to starting the visit. She had concerns about billing. Said at the last visit that Tracy was charged an additional bill for another topic discussed in her wellness visit. Mom said that it was about constipation. Mom was upset about this charge, and why that charge happened. [place] that a wellness visit should include more than just weight, vitals -- Tracy should be able to discuss her concerns. Mom said if she was going to be charged additionally, then she will request her records and go elsewhere. I validated her frustration, but spoke that I have little to do with the billing aspect, and that additional codes/bills do occur if there is additional discussion outside of the purview of the wellness visit. I told mom that I will be coding this as a well visit. Mom seems comfortable with this and we proceeded with the visit. Concerns - 1. Menses. Has had since 8th grade (4 years). Usually occurs about every 6 weeks, regular. keeps track. Not especially heavy or lots of cramps. However, in [place] for abroad year last year, and periods were a lot less regular. Had one May 2018, Sep 2018, December 2018, March 2019, and currently on period this week. No weight loss. ++ stress with travel and abroad, also has h/o anxiety. No GRAF, no galactorrhea. No FHx of PCOS. Older sister studied abroad and had a similar thing where her periods were really irregular, but then returned to normal schedule once she was back. Not sexually active. Has appointment with Dr. Sheehan - modeling analyst next month. Had labs done per mom's request prior to this visit -- normal CBC, ferritin, and TFTs. 2. Difficulty getting a deep breath/constriction when doing X-country. Will cough after meets for the next day or so, then resolves. No wheeze. No syncope, difficulty keeping up with peers. Is a bit out of shape with travel for the past year, but feels this is not deconditioning. No history of syncope, chest pain, shortness of breath, difficulty keeping up with peers. 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 Helped. No personal h/o asthma, but dad has a possible history of it and bad seasonal allergies. 3. Dizziness/lightheadedness sometimes when standing up after lying down or sitting. Brief. No tunnel vision, no passing out. Present for awhile. Feels like she drinks a ton of water. No clear provoking factors. 4. History of iron deficiency -- had a ferritin of 8 10/2016. has been taking iron since then. Recommended by X-country head tennis coach. Taking 65 mg daily right now. Ferritin 90 on check 05/09/19. Doesn't eat much meat. Periods are irregular as above. 5. Mom request TFTs done as well -- these are normal. When reviewing prior labs, it appears she had + TPO ab in 2015. Other antibodies negative. These have not been rechecked, but TFTs normal today. Sister with hypothyroidism as well. 6. H/o anxiety - has gotten better. Now with some mild depression symptoms. Seeing therapist regularly -- Shanon Vaughn. Helpful. No SI or self harm. Feels supported and doing well. Senior at [employer]. Thinking of going to [employer]. Likes Jorge. Lots of extracurriculars -- currently doing X-country. Sleep is good. Gets at least 7 hours but tries to shoot for 8. Good friends. Good support. Traveled abroad in [place] last year -- wonderful experience. Eating wide variety of foods, but not much meat.No problems voiding or stooling. Not sexually active. Lives at home with mom, dad. Has older sister and brother. Dad is associate professor of surgery at [employer]. Mom used to be a associate professor of surgery as well. Bright Futures form completed and reviewed. CRAFT - negative. PHQ-9 - score of 3. No SI or self harm. Has felt sad most days over the past year. * 17 yr Well child Tracy is here today for well exam. She comes in with her mother.She is a 17-year-old who has been doing well with no acute concerns. Diet, sleep, behavior are appropriate. See notes about iron deficiency under activity section.Menstrual cycle is normal. She has slightly heavier flow using 6-7 products on a heavy day. But she has been able to manage that. No significant dysmenorrhea..Family: No changes for her now. She lives at home with her parents and older sister. Brother is in college. However she will be likely doing a year abroad next year. She is in the process of doing the applications through the [employer].Activity: He is extremely involved in multiple sports. Currently working up for track but also has done cross country. Not running extensive distances at this time now. Given the amount she is running they have been attentive to her iron and ferritin levels. In October 2016 she had a low ferritin of 8. He had a follow-up not done at this clinic on 1116. The family reports that the ferritin from [facility] school-based clinic was 31. She continues on iron supplement at this time.School: She is at [employer] which is now on the [facility]. She does well. She has no concerns about academic needs when she is abroad next year. She is extremely involved in many activities. That includes clubs, entrepreneurship, activism particularly around global warming, and sports. I am not sure I can keep up with her schedulePeers: She is good peer relationships. She has no concerns. No romantic relationships but she does not have time. That is not a concern for her now.High risk behaviors: None. She is tasted alcohol at family events but does not regularly use any alcohol or marijuana cigarettes or illicit drugs. No concerns PHYSICAL EXAM: General: Alert, cooperative of the exam. Fernanda, outgoing, and elegant. She also works very well with her mother who provides her reassurance but allows independence.HEENT: TMs are normal, extraocular movements and pupillary reflexes are normal. Nasal mucosa is normal. Oropharynx is normal. Neck: Supple without significant adenopathy. Chest: Symmetric with good breath sounds heard throughout. Heart: Regular rate and rhythm without murmur. Abdomen: Soft and flat, no masses, no tenderness. : Normal female anatomy. Tae IVExtremities: Within normal limits. Deep tendon reflexes are normal. Back: within normal limits, no evidence of scoliosis.Skin: without lesionsLab: None today. I offered the opportunity for them to come back and do thyroid and iron/ferritin levels. Anticipate that they would do that in December or January. The orders are in the chartScreenings: Bright futures reviewed and discussedImpression:Tracy is a well 17-year-old. Growth and development are normal. But her sense of herself and her place in the world is quite remarkable for her age. I strongly support the year abroad. We completed that paperwork. Apparently it was for the third time. There were challenges previously because we needed to do it in blue ink and Dr. Gary's attestation that I had done the exam she signed was not sufficient for the consulit. So we did round #3 on those rotary forms today.Anticipatory guidance provided for her current needs and the year abroad. They can follow for the labs as her schedule permits. Will follow with us as needed. Immunizations are up-to-date. Next well visit to be after her trip abroad. *TB Test *16 year well child well Plantar's wart o n L toe, would like more magic wart cream. Mom concerned about cost. Rash on chest - will take pictures and come back if it comes back, had it with her period. Menarche 1 month agoLast couple weeks bad stomach aches, some nausea, no vomiting. Has been taking ranitidine, not helping now but had in the past. pain after dinner and has laid on the bathroom floor scared she would vomit for the a couple nightsBM 'daily. bristol type 3 but sperate pieces. Stomach flu has been going around at school 2 or 3 weeks ago when this started. She's an anxious girl who worries about throwing up. No changes in diet. Tends to be epigastric or in her chest, but does not feel like it's a burning pain. No stopping her from doing activties.Also running cross country and wondering if her legs are a different length because she noticed one knee sticks out more than the other when she does a squat. Well child sore throat 14 y/o well check Functional Status Date Functional Assessmen t No Information Instructions Date Instruction Additional Infor kenrick PAP and Td today.Asha long will return as needed. Related to Health education/counseling I will contact Tracy with the results of her PAP. Related to Encounter for gynecological examination (general) (routine) without abnormal findings This is chronic and not associated with hyper or hypothyroidism. I suggested we not continue to check the level of this antibody on an annual basis, but continue to check TSH and free T4. Related to Anti-TPO antibodies present Immunizations are up -to-date. She is due for a Pap and that will be scheduled today.Tracy will return in April for her first Pap and physical exam. She will need a Tdap at that time. Related to Health education/counseling Continue with iron r ich foodsCan take iron supplementation during periodsContinue to monitor periodically Related to History of iron deficiency Anticipatory guidog e discussed and [employer] futures handout providedReviewed nutrition, healthy lifestyles, exercise, sleep, screen time, safety, menses, and mood Immunizations: up to date, got flu shot at [facility]. Bexsero #1 todayReturn in 1 month or this summer for Bexsero #2Next [facility] in 1 year - discussed transitioning to adult physician Related to Encounter for general adult medical examination without abnormal findings Discussed that I wou ld stop this and continue with iron rich foods. There are risks to too much iron. If she resumes regular menses and is not eating meat, then would consider teen MVI with 18 mg of iron daily.Can follow ferritin about every 6 months, sooner if concerns Related to History of iron deficiency Trial Albuterol -- d iscussed and Rx sentIf no improvement, needs to come back/call, sooner if worsening Related to Shortness of breath Discussed Continue g ood hydration, increase salt/electrolytes in dietCome back if worsening/concerns Related to Dizziness Anticipatory aron gloria discussed and Bright Futures handout providedReviewed nutrition, healthy lifestyles, exercise, sleep, safety, menses, and mood Immunizations: MCV #2; rec'd flu shot this fall; rec'd Bexsero prior to college (planning to take a gap year)Next [facility] in 1 year Related to Encntr for routine child health exam w/o abnormal findings Rx sent to pharmacy. Reviewed care and OTC options. Related to Plantar wart of left foot Not likely clinicall y significant. Recommended wearing one shoe insert in cross country if bothering her. Related to Leg length discrepancy Trial of PPI for 2 w ks They will let us know if that helps, seems to be consistent with some GERD but may have other eitiology. They will also keep a pain diary to better elicudate if certain foods are contributing. Related to Epigastric pain Appropriate anticipa tory guidance given for age.Immunizations updated - HPV, FluAll questions answered and age-appropriate handout given. Related to Encounter for well child exam with abnormal findings As per patient privacy policy some of the clinical information may not be visible. Assessments Type Assessment Date No Information Patient Care Teams Name Effective Dates (start - stop) Status Members No Information
--- OUTSIDE RECORDS SUMMARY | 2024-01-21 06:36 | XMS_ITS | Data Portability ---
Author Name Unknown Address [address] [place] [address] Phone [phone] Organization [place] - [employer], [facility] - [facility] Address [address] [address] Care Team Providers Care Shake Splitter Name Role Phone NAVEEN ODEN MD Referring Provider Assessment Encounter Date Assessment Date Assessment LastModified by Organization Details LastModified Time 06/17/2017 06/17/2017 Physical Therapy Assessment Signs and symptoms appear consistent with the following PT diagnosis: __right glut medius strain_ Based on my findings, the patient would benefit from the following skilled physical therapy treatment: [___] Home Exercise Program (HEP) [___] Manual therapy: Joint Mobilization, Soft Tissue Mobilization [___] Therapeutic activities as appropriate [___] Therapeutic Exercise as appropriate [___] Neuromuscular re-education [___] Gait Training [___] Return to Work/Sport [___] Pool Therapy [___] Bike fit To address impairments in: [___] Strength, muscle imbalance, posture [___] ROM,flexibility [___] Endurance [___] Balance, movement, proprioception, biomechanics [___] Pain [___] Core stability [___] Ergonomics/Body mechanics Frequency and Duration I recommend that the patient be seen for physical therapy treatment up to 2x per week for 5 weeks [email or web address] Not available 06/17/2017 14:02:50 06/23/2017 06/23/2017 Physical Therapy Assessment Signs and symptoms appear consistent with the following PT diagnosis: __right glut medius strain_ Based on my findings, the patient would benefit from the following skilled physical therapy treatment: [___] Home Exercise Program (HEP) [___] Manual therapy: Joint Mobilization, Soft Tissue Mobilization [___] Therapeutic activities as appropriate [___] Therapeutic Exercise as appropriate [___] Neuromuscular re-education [___] Gait Training [___] Return to Work/Sport [___] Pool Therapy [___] Bike fit To address impairments in: [___] Strength, muscle imbalance, posture [___] ROM,flexibility [___] Endurance [___] Balance, movement, proprioception, biomechanics [___] Pain [___] Core stability [___] Ergonomics/Body mechanics Frequency and Duration I recommend that the patient be seen for physical therapy treatment up to 2x per week for 5 weeks [email or web address] [id number] Not available 06/23/2017 10:00:06 07/05/2017 07/05/2017 Physical Therapy Assessment Signs and symptoms appear consistent with the following PT diagnosis: __right glut medius strain_ [place] [id number] Not available 07/05/2017 12:40:47 07/19/2017 07/19/2017 Physical Therapy Assessment Signs and symptoms appear consistent with the following PT diagnosis: __right glut medius strain_ expected number of visits ____4 more visits before full function and return to run [place] [id number] Not available 07/19/2017 11:09:13 11/10/2017 11/10/2017 Physical Therapy Assessment Signs and symptoms appear consistent with the following PT diagnosis: R>L periostitis/media l tibial stress syndrome, R gluteal tendonopathy, pronatory loading. Adjacent structures that may be contributing to this condition include gastrocsoleus tightness, pronatory/IR/toe out loading, early heel off in stance. The patient is an excellent candidate for physical therapy. Frequency and Duration I recommend that the patient be seen for physical therapy treatment up to 2x per week for 6 weeks expected number of visits 4-6 Not available 11/10/2017 23:04:14 12/22/2017 12/22/2017 Physical Therapy Assessment Signs and symptoms appear consistent with the following PT diagnosis: R>L periostitis/media l tibial stress syndrome, R gluteal tendonopathy, pronatory loading. TFL irritation Adjacent structures that may be contributing to this condition include gastrocsoleus tightness, pronatory/IR/toe out loading, early heel off in stance. The patient is an excellent candidate for physical therapy. Tracy has been recovering and competing very well. Slight TFL irritation will be handled well with TFL rolling. Not available 12/22/2017 23:07:39 04/25/2018 04/25/2018 Physical Therapy Assessment Signs and symptoms appear consistent with the following PT diagnosis: R>L periostitis/media l tibial stress syndrome, R gluteal tendonopathy, pronatory loading. TFL irritation Adjacent structures that may be contributing to this condition include gastrocsoleus tightness, pronatory/IR/toe out loading, early heel off in stance. The patient is an excellent candidate for physical therapy. Tracy has been recovering and competing very well. Slight TFL irritation will be handled well with TFL rolling. [email or web address] Not available 05/02/2018 16:18:21 04/10/2019 04/10/2019 Physical Therapy Assessment Pt presents with s/s of acute ankle sprain that has worsened since initial incident two weeks ago. Pt able to walk without limping but reports increased pain. Unable to perform single leg stance due to increased pain. At this time, pt tolerates non weightbearing exercises well with no pain but difficulty performing weightbearing exercises. Instructed to bike and swim to replace running. Will continue to follow. Pt will benefit from skilled therapy to improve ankle stability and proprioceptive input. Continue to progress patient treatment with single leg stance, lateral walks in PF, carioca, return to run test. Signs and symptoms appear consistent with the following PT diagnosis: ankle pain secondary to ankle sprain Signs and symptoms do not allow us to rule out fracture. Adjacent structures that may be contributing to this condition include metatarsals, evertors, invertors, plantarflexors. The patient is an excellent candidate for physical therapy. Complexity Factors The patient? s condition is of a high complexity as noted by the following factors: > Personal - social, running, working out, walking. > Medical (co-morbidities) - . > Other factors The clinical presentation of the patient is Evolving Therapy Examination points to addressing 4 or more elements body structures and functions, impairments, participation restrictions/acti vity limitations). Including social participation restrictions and activity limitations consisting of running, walking, standing. If progress is not made in an appropriate amount of time, other referrals for consideration include: medical doctor (). Based on my findings, the patient would benefit from the following skilled physical therapy treatment: [X ] Home Exercise Program (HEP) [X ] Manual therapy: Joint Mobilization, Soft Tissue Mobilization [X ] Therapeutic activities as appropriate [X ] Therapeutic Exercise as appropriate [X ] Neuromuscular re-education [X ] Gait Training [X ] Return to Work/Sport [___] Pool Therapy [___] Bike fit To address impairments in: [X ] Strength, muscle imbalance, posture [X ] ROM,flexibility [X ] Endurance [X ] Balance, movement, proprioception, biomechanics [X ] Pain [X ] Core stability [X ] Ergonomics/Body mechanics [___] Modalities as appropriate to: [___] Promote tissue healing, improve circulation [___] Manage pain [___] Decrease inflammation [___] Increase tissue extensibility [___] Decrease muscle spasm [___] Re-educate muscles [___] Improve neurological symptoms Frequency and Duration I recommend that the patient be seen for physical therapy treatment up to 1x per week for 8 weeks expected number of visits 6-8 Not available 04/11/2019 21:20:35 04/20/2019 04/20/2019 Physical Therapy Assessment Pt presents with s/s of acute ankle sprain that has worsened since initial incident two weeks ago. Pt able to walk without limping but reports increased pain. Unable to perform single leg stance due to increased pain. Tolerating weightbearing exercises at this time with no pain. Slight discomfort with skipping, patient instructed to continue to perform exercises if pain stays below 3/10. Progress with return to run test. Instructed to attempt skipping prior to next visit to monitor pain. Signs and symptoms appear consistent with the following PT diagnosis: ankle pain secondary to ankle sprain Signs and symptoms do not allow us to rule out fracture. Adjacent structures that may be contributing to this condition include metatarsals, evertors, invertors, plantarflexors. The patient is an excellent candidate for physical therapy. Frequency and Duration I recommend that the patient be seen for physical therapy treatment up to 1x per week for 8 weeks expected number of visits 6-8 In general, the patient is progressing as expected. Patient tolerance/respons e to treatment: good I anticipate the next encounter will fall primarily in the functional movement impairment treatment pathway. Plan Not available 04/20/2019 11:26:20 04/30/2019 04/30/2019 Physical Therapy Assessment Pt presents with s/s of acute ankle sprain that has worsened since initial incident two weeks ago.Pt demonstrates ability to perform return to run tests with no increased pain. Encouraged to run but begin with 10 minutes and progress from there. Will make decision about racing on Tuesday depending on how she feels. Patient instructed to continue to perform exercises if pain stays below 3/10. Progress with return to run test. Instructed to attempt skipping prior to next visit to monitor pain. Will follow up in 2-3 weeks. Signs and symptoms appear consistent with the following PT diagnosis: ankle pain secondary to ankle sprain Signs and symptoms do not allow us to rule out fracture. Adjacent structures that may be contributing to this condition include describe . The patient is an excellent candidate for physical therapy. Frequency and Duration I recommend that the patient be seen for physical therapy treatment up to 1x per week for 8 weeks expected number of visits 6-8 In general, the patient is progressing as expected. Patient tolerance/respons e to treatment: good I anticipate the next encounter will fall primarily in the functional movement impairment treatment pathway. Plan Not available 04/30/2019 16:12:58 06/21/2019 06/21/2019 Physical Therapy Assessment Pt presents with s/s of L achilles tendon irritation secondary to overuse from running. Did not tolerate WB heel raises but did tolerate in seated position. Taping helped minimally with tolerance to running. Pt instructed to not run tonight and to evaluate how she feels after running her pre race run tomorrow. Pt will benefit from skilled therapy to improve tolerance to running, walking, decrease pain. Continue to progress patient treatment with WB heel raises, runners touches, heel raises off of decline step. Signs and symptoms appear consistent with the following PT diagnosis: L achilles irritation Signs and symptoms do not allow us to rule out tendinopathy. Adjacent structures that may be contributing to this condition include flexor hallucis, post tib. The patient is an excellent candidate for physical therapy. Complexity Factors The patient? s condition is of a moderate complexity as noted by the following factors: > Personal - social, running, exercising. > Medical (co-morbidities) - . > Other factors describe The clinical presentation of the patient is Evolving Therapy Examination points to addressing 3 or more elements body structures and functions, impairments, participation restrictions/acti vity limitations). Including social participation restrictions and activity limitations consisting of running, . If progress is not made in an appropriate amount of time, other referrals for consideration include: medical doctor (). Based on my findings, the patient would benefit from the following skilled physical therapy treatment: [X ] Home Exercise Program (HEP) [X ] Manual therapy: Joint Mobilization, Soft Tissue Mobilization [X ] Therapeutic activities as appropriate [X ] Therapeutic Exercise as appropriate [X ] Neuromuscular re-education [X ] Gait Training [X ] Return to Work/Sport [___] Pool Therapy [___] Bike fit To address impairments in: [X ] Strength, muscle imbalance, posture [X ] ROM,flexibility [X ] Endurance [X ] Balance, movement, proprioception, biomechanics [X ] Pain [X ] Core stability [X ] Ergonomics/Body mechanics [___] Modalities as appropriate to: [___] Promote tissue healing, improve circulation [___] Manage pain [___] Decrease inflammation [___] Increase tissue extensibility [___] Decrease muscle spasm [___] Re-educate muscles [___] Improve neurological symptoms Frequency and Duration I recommend that the patient be seen for physical therapy treatment up to 1x per week for 6 weeks expected number of visits 6-8 Not available 06/21/2019 16:07:40 11/26/2019 11/26/2019 Physical Therapy Assessment Pt presents with s/s of R post tib irritation and posterior oneal splints. Pt tolerated exercises well with increased pain during R eccentric calf raises but improved with rotation over R shoulder. Pt also instructed to perform B heel raises once pain increases above a 3/10. Pt will cross train this week and perform bike workouts to decrease load, will perform exercises prior to runs. Pt will benefit from skilled therapy to improve R ankle strength, PF strength, decrease pain with running. Continue to progress patient treatment with standing inversion with heel taps, single leg balance on bosu ball, carioca, jump roping. Will see next week to determine need to progress exercises. Signs and symptoms appear consistent with the following PT diagnosis: R post tibialis Signs and symptoms do not allow us to rule out stress fracture. Adjacent structures that may be contributing to this condition include post tibialis, gastroc/soleus complex, achilles. The patient is an excellent candidate for physical therapy. Complexity Factors The patient? s condition is of a moderate complexity as noted by the following factors: > Personal - social. > Medical (co-morbidities) - . > Other factors describe The clinical presentation of the patient is Evolving Therapy Examination points to addressing 3 or more elements body structures and functions, impairments, participation restrictions/acti vity limitations). Including social participation restrictions and activity limitations consisting of running, walking, SL stance, balance. If progress is not made in an appropriate amount of time, other referrals for consideration include: orthopedic physician. Based on my findings, the patient would benefit from the following skilled physical therapy treatment: [X ] Home Exercise Program (HEP) [X ] Manual therapy: Joint Mobilization, Soft Tissue Mobilization [X ] Therapeutic activities as appropriate [X ] Therapeutic Exercise as appropriate [X ] Neuromuscular re-education [X ] Gait Training [X ] Return to Work/Sport [___] Pool Therapy [___] Bike fit To address impairments in: [X ] Strength, muscle imbalance, posture [X ] ROM,flexibility [X ] Endurance [X ] Balance, movement, proprioception, biomechanics [X ] Pain [X ] Core stability [X ] Ergonomics/Body mechanics [___] Modalities as appropriate to: [___] Promote tissue healing, improve circulation [___] Manage pain [___] Decrease inflammation [___] Increase tissue extensibility [___] Decrease muscle spasm [___] Re-educate muscles [___] Improve neurological symptoms Frequency and Duration I recommend that the patient be seen for physical therapy treatment up to 1x per week for 4 weeks expected number of visits 4-6 Not available 11/26/2019 15:38:31 05/26/2020 05/26/2020 Physical Therapy Assessment Pt presents with s/s of ankle weakness, pronation, and potential R post tibialis tendinopathy. Pt tolerated exercises well and instructed to perform 4x/week in addition to increasing her mileage. Pt will benefit from skilled therapy to improve strength and stability. Continue to progress patient treatment with bosu ball exercises, lateral bosu ball jumps, standing hip series as tolerated. Pt will check in only if needed in the next month. Signs and symptoms appear consistent with the following PT diagnosis: ankle pain Signs and symptoms do not allow us to rule out posterior tibialis tendinopathy. Adjacent structures that may be contributing to this condition include posterior tibialis. The patient is an excellent candidate for physical therapy. Complexity Factors The patient? s condition is of a moderate complexity as noted by the following factors: > Personal - social. > Medical (co-morbidities) - . > Other factors describe The clinical presentation of the patient is Evolving Therapy Examination points to addressing 3 or more elements body structures and functions, impairments, participation restrictions/acti vity limitations). Including social participation restrictions and activity limitations consisting of running, training. If progress is not made in an appropriate amount of time, other referrals for consideration include: medical doctor (MD). Based on my findings, the patient would benefit from the following skilled physical therapy treatment: [X ] Home Exercise Program (HEP) [X ] Manual therapy: Joint Mobilization, Soft Tissue Mobilization [X ] Therapeutic activities as appropriate [X ] Therapeutic Exercise as appropriate [X ] Neuromuscular re-education [X ] Gait Training [X ] Return to Work/Sport [___] Pool Therapy [___] Bike fit To address impairments in: [X ] Strength, muscle imbalance, posture [X ] ROM,flexibility [X ] Endurance [X ] Balance, movement, proprioception, biomechanics [X ] Pain [X ] Core stability [X ] Ergonomics/Body mechanics [___] Modalities as appropriate to: [___] Promote tissue healing, improve circulation [___] Manage pain [___] Decrease inflammation [___] Increase tissue extensibility [___] Decrease muscle spasm [___] Re-educate muscles [___] Improve neurological symptoms Frequency and Duration I recommend that the patient be seen for physical therapy treatment up to 1x per week for 8 weeks expected number of visits 6-8 Not available 05/26/2020 23:48:55 06/26/2020 06/26/2020 Physical Therapy Assessment Pt presents with s/s of ankle weakness, pronation, and potential R post tibialis tendinopathy. Pt tolerated exercises well and instructed to perform 4x/week in addition to increasing her mileage. Pt will benefit from skilled therapy to improve strength and stability. Continue to progress patient treatment with bosu ball exercises, lateral bosu ball jumps, standing hip series as tolerated. Pt will check in in next 2-3 weeks as needed to progress soft tissue work. Pt also instructed to cross train for one week to offload posterior tibialis. Pt instructed to run half of her mileage and then to do some biking intervals workouts to maintain fitness. Pt demonstrated understanding. Pt instructed to not let pain get above a 3/10. Signs and symptoms appear consistent with the following PT diagnosis: ankle pain Signs and symptoms do not allow us to rule out posterior tibialis tendinopathy. Adjacent structures that may be contributing to this condition include posterior tibialis. The patient is an excellent candidate for physical therapy. Frequency and Duration I recommend that the patient be seen for physical therapy treatment up to 1x per week for 8 weeks expected number of visits 6-8 In general, the patient is progressing as expected. Patient tolerance/respons e to treatment: good I anticipate the next encounter will fall primarily in the functional movement impairment treatment pathway. Plan Not available 06/26/2020 12:03:54 07/18/2020 07/18/2020 Physical Therapy Assessment Pt presents with s/s of ankle weakness, pronation, and potential R post tibialis tendinopathy. Pt tolerated exercises well and instructed to perform 4x/week in addition to increasing her mileage. Pt will benefit from skilled therapy to improve strength and stability. Continue to progress patient treatment with bosu ball exercises, lateral bosu ball jumps, standing hip series as tolerated. Pt will check in in next 2-3 weeks as needed to progress soft tissue work. Assess benefit of kinessio tape on R posterior tibialis and if a stiffer tape needs to be used moving forward. . Signs and symptoms appear consistent with the following PT diagnosis: ankle pain Signs and symptoms do not allow us to rule out posterior tibialis tendinopathy. Adjacent structures that may be contributing to this condition include posterior tibialis. The patient is an excellent candidate for physical therapy. Frequency and Duration I recommend that the patient be seen for physical therapy treatment up to 1x per week for 8 weeks expected number of visits 6-8 In general, the patient is progressing as expected. Patient tolerance/respons e to treatment: good I anticipate the next encounter will fall primarily in the functional movement impairment treatment pathway. Plan Not available 07/18/2020 14:59:10 07/25/2020 07/25/2020 Physical Therapy Assessment Pt presents with s/s of ankle weakness, pronation, and potential R post tibialis tendinopathy. Pt tolerated exercises well and instructed to perform 4x/week in addition to increasing her mileage. Pt will benefit from skilled therapy to improve strength and stability. Continue to progress patient treatment with bosu ball exercises, lateral bosu ball jumps, standing hip series as tolerated. Pt will check in once she has taken some time off from training for her half marathon and is ready to begin running again. Continue to tape R posterior tibialis as this seems to be beneficial in relieving patients pain. . Signs and symptoms appear consistent with the following PT diagnosis: ankle pain Signs and symptoms do not allow us to rule out posterior tibialis tendinopathy. Adjacent structures that may be contributing to this condition include posterior tibialis. The patient is an excellent candidate for physical therapy. Frequency and Duration I recommend that the patient be seen for physical therapy treatment up to 1x per week for 8 weeks expected number of visits 6-8 In general, the patient is progressing as expected. Patient tolerance/respons e to treatment: good I anticipate the next encounter will fall primarily in the functional movement impairment treatment pathway. Plan Not available 07/25/2020 11:21:17 03/30/2021 03/30/2021 Physical Therapy Assessment Pt presents with s/s of R toe extensor tendinopathy. Pt tolerated exercises well with no increased pain, but did reports pain with attempt at single leg heel raise on slant board. Pt will benefit from continued eccentric loading of R toe extension, attempt single leg heel raises as tolerated, lateral walks to improve ankle eversion. Pt did not test positive for a stress fx today but continue to follow. Instructed to continue to perform cross training as tolerated. Next time: Tib post calf raise on slant. . Signs and symptoms appear consistent with the following PT diagnosis: ankle pain Signs and symptoms do not allow us to rule out posterior tibialis tendinopathy. Adjacent structures that may be contributing to this condition include posterior tibialis. The patient is an excellent candidate for physical therapy. [X ] Home Exercise Program (HEP) [X ] Manual therapy: Joint Mobilization, Soft Tissue Mobilization [X ] Therapeutic activities as appropriate [X ] Therapeutic Exercise as appropriate [X ] Neuromuscular re-education [X ] Gait Training [X ] Return to Work/Sport [___] Pool Therapy [___] Bike fit To address impairments in: [X ] Strength, muscle imbalance, posture [X ] ROM,flexibility [X ] Endurance [X ] Balance, movement, proprioception, biomechanics [X ] Pain [X ] Core stability [X ] Ergonomics/Body mechanics [___] Modalities as appropriate to: [___] Promote tissue healing, improve circulation [___] Manage pain [___] Decrease inflammation [___] Increase tissue extensibility [___] Decrease muscle spasm [___] Re-educate muscles [___] Improve neurological symptoms Frequency and Duration I recommend that the patient be seen for physical therapy treatment up to 1x per week for 8 weeks expected number of visits 6-8 Not available 03/30/2021 16:39:19 04/30/2021 04/30/2021 Physical Therapy Assessment Pt presents with s/s of R toe extensor tendinopathy. Pt tolerated exercises well with no increased pain. Pt will benefit from continued eccentric loading of R toe extension, lateral walks to improve ankle eversion. Next time: Tib post calf raise on slant and tib ant with back on wall and toe raises . Signs and symptoms appear consistent with the following PT diagnosis: ankle pain Signs and symptoms do not allow us to rule out posterior tibialis tendinopathy. Adjacent structures that may be contributing to this condition include posterior tibialis. Frequency and Duration I recommend that the patient be seen for physical therapy treatment up to 1x per week for 8 weeks expected number of visits 6-8 In general, the patient is progressing as expected. Patient tolerance/respons e to treatment: good I anticipate the next encounter will fall primarily in the functional movement impairment treatment pathway. Plan Frequency and Duration I recommend that the patient be seen for physical therapy treatment up to 1x per week for 8 weeks expected number of visits 6-8 Not available 04/30/2021 19:43:28 08/18/2021 08/18/2021 Physical Therapy Assessment Pt presents with s/s of L hip pain and muscular pain that could be secondary to a stress fx. I am concerned about a stress fx secondary to primary complaints of pn with WBing and groin referral. Pt tolerated exercises well but with no improvement after tissue work and light loading of hip. Pt encouraged to reach out to PCP to acquire a referral for an x-ray. Pt will benefit from skilled therapy to improve strength and stability, rule out L hip stress fx. Continue to progress patient treatment with return to run progression as tolerated. Imaging to rule out diagnosis. Pt will go back to school shortly so it would be worthwhile to progress imaging. Signs and symptoms appear consistent with the following PT diagnosis: L hip pain Signs and symptoms do not allow us to rule out stress fx. Adjacent structures that may be contributing to this condition include femoral head. The patient is an excellent candidate for physical therapy. Complexity Factors The patient? s condition is of a moderate complexity as noted by the following factors: > Personal - social. > Medical (co-morbidities) - . > Other factors The clinical presentation of the patient is Evolving Therapy Examination points to addressing 3 or more elements body structures and functions, impairments, participation restrictions/acti vity limitations). Including social participation restrictions and activity limitations consisting of running, training, walking. If progress is not made in an appropriate amount of time, other referrals for consideration include: medical doctor (MD). Based on my findings, the patient would benefit from the following skilled physical therapy treatment: [X ] Home Exercise Program (HEP) [X ] Manual therapy: Joint Mobilization, Soft Tissue Mobilization [X ] Therapeutic activities as appropriate [X ] Therapeutic Exercise as appropriate [X ] Neuromuscular re-education [X ] Gait Training [X ] Return to Work/Sport [___] Pool Therapy [___] Bike fit To address impairments in: [X ] Strength, muscle imbalance, posture [X ] ROM,flexibility [X ] Endurance [X ] Balance, movement, proprioception, biomechanics [X ] Pain [X ] Core stability [X ] Ergonomics/Body mechanics [___] Modalities as appropriate to: [___] Promote tissue healing, improve circulation [___] Manage pain [___] Decrease inflammation [___] Increase tissue extensibility [___] Decrease muscle spasm [___] Re-educate muscles [___] Improve neurological symptoms Frequency and Duration I recommend that the patient be seen for physical therapy treatment up to 1x per week for 6 weeks expected number of visits 4-6 Not available 08/18/2021 16:40:18 08/25/2021 08/25/2021 Physical Therapy Assessment Pt presents with s/s of L hip pain and muscular pain that could be secondary to a stress fx. I am concerned about a stress fx secondary to primary complaints of pn with WBing and groin referral. Pt tolerated exercises well but with no improvement after tissue work and light loading of hip. Pt does not have a stress fx per imaging report. Continue to move forward with weight bearing exercises as tolerated. Signs and symptoms appear consistent with the following PT diagnosis: L hip pain Signs and symptoms do not allow us to rule out stress fx. Adjacent structures that may be contributing to this condition include femoral head. The patient is an excellent candidate for physical therapy. Frequency and Duration I recommend that the patient be seen for physical therapy treatment up to 1x per week for 6 weeks expected number of visits 4-6 In general, the patient is progressing as expected. Patient tolerance/respons e to treatment: good I anticipate the next encounter will fall primarily in the functional movement impairment treatment pathway. Plan Not available 08/25/2021 13:59:21 04/02/2022 04/02/2022 Physical Therapy Assessment Signs and symptoms appear consistent with the following PT diagnosis: B hip pain, B knee pain Signs and symptoms do not allow us to rule out structural Adjacent structures and other contributing factors to this condition include hip flexors, deep hip rotators, glutes The patient is a an excellent candidate for physical therapy. Objective evaluation of this patient warrants the necessity for a detailed movement analysis of posture , walking and running kinematics. The use of a three dimensional motion analysis will allow objective clarity in our decision making regarding prognosis and treatment decisions. Specifically, spinal motion in conjunction with the lower limb kinematics will allow functional goals to be obtained for load and propulsive related biomechanics , rates of loading and ranges of motion. We will have video and objective data available with the [employer] 4d motion analysis STATIC, 4D MOTION, HIGH PERFORMANCE. Complexity Factors The patient? s condition is of a moderate complexity as noted by 1-2 personal factors and/or comorbidities. The clinical presentation of the patient is Evolving. Therapy Examination points to addressing 3 or more elements, body structures and functions as per physical exam including participation restrictions and activity limitations as per goals section. Based upon these factors, I suspect the patient will take an average amount of time/resources for recovery. Treatment Plan Based on my findings, the patient would benefit from the following skilled physical therapy treatment: a home exercise program (HEP), manual therapy, joint mobilization, soft tissue mobilization, therapeutic activities , therapeutic exercise and neuromuscular re-education and modalities as appropriate to address impairments in strength, endurance, muscle imbalance, posture, ROM, flexibility, biomechanics, pain, and ergonomics/body mechanics. Frequency and Duration I recommend that the patient be seen for physical therapy treatment up to 1x per week for 4 weeks expected number of visits 3-4 Not available 04/02/2022 18:33:21 04/20/2022 04/20/2022 Physical Therapy Assessment Signs and symptoms appear consistent with the following PT diagnosis: B hip pain, B knee pain Adjacent structures and other contributing factors to this condition include strength, returning to prior level of training In general, the patient is progressing as expected, based on strength Plan Follow up on strength, stability, return to run , assess response to return to run and continue with plan of care. Not available 04/20/2022 15:47:50 03/17/2023 03/17/2023 Physical Therapy Assessment Signs and symptoms appear consistent with the following PT diagnosis: Pt presents to physical therapy with signs and symptoms consistent with R fibular head pain and calf pain. She demonstrates decreased calf and ankle strength, causing increased discomfort with running and biking. Additionally she has R hip pain when in single leg weight bearing, overall limiting patients participation in activities. She will benefit from skilled PT to progress functional strength. The patient is a an excellent candidate for physical therapy. Complexity Factors The patient? s condition is of a moderate complexity as noted by 1-2 personal factors and/or comorbidities. The clinical presentation of the patient is Evolving. Therapy Examination points to addressing 3 or more elements, body structures and functions as per physical exam including participation restrictions and activity limitations as per goals section. Based upon these factors, I suspect the patient will take an average amount of time/resources for recovery. Treatment Plan Based on my findings, the patient would benefit from the following skilled physical therapy treatment: a home exercise program (HEP), manual therapy, joint mobilization, soft tissue mobilization, therapeutic activities , therapeutic exercise and neuromuscular re-education and modalities as appropriate to address impairments in strength, endurance, muscle imbalance, posture, ROM, flexibility, biomechanics, pain, and ergonomics/body mechanics. Frequency and Duration I recommend that the patient be seen for physical therapy treatment up to 1x per week for 6 weeks expected number of visits 6 ailyn Not available 03/22/2023 13:01:54 04/26/2023 04/26/2023 Physical Therapy Assessment Signs and symptoms appear consistent with the following PT diagnosis: Pt presents to physical therapy with signs and symptoms consistent with R fibular head pain and calf pain. She demonstrates decreased calf and ankle strength, causing increased discomfort with running and biking. Additionally she has R hip pain when in single leg weight bearing, overall limiting patients participation in activities. She will benefit from skilled PT to progress functional strength. In general, the patient is progressing as expected, based on symptom improvement. Progressed warm-up and strengthening routine [place]. Criteria for Discharge This patient has made excellent progress during this series of PT for lateral calf pain. The patient has been instructed in a home exercise program including ergonomic and functional activity training and is now appropriate for discharge to self-management. Patient has met their functional goals Patient demonstrates good understanding of HEP and training regimen to avoid recurrent injury Patient demonstrates adaptive pain behaviors Plan of Care Based on my current assessment, I recommend that the patient be discharged from PT, continue with their HEP as instructed and call if they have any questions or concerns regarding their home program. ailyn Not available 04/26/2023 12:30:24 Plan of Treatment Reminders Order Date Submit Date Provider Last Modified By Organization Details Last Modified Time Details Appointments None record ed. Lab None record ed. Referral None record ed. Procedures None record ed. Surgeries None record ed. Imaging None record ed. Medication Orders None record ed. Patient Targets Encounter Date Encounter Id Patient Goals Patient Target Last Modified By Organization Details Last Modified Time 04/26/2023 [id number] joint terminal attack controller goal of Pain Scale Not available Not available Not available penitentiary goal of Functional Scores -[id number] Not available Not available Not available joint terminal attack controller goal of Functional Scores -[id number] Not available Not available Not available joint terminal attack controller goal of Functional Scores -[id number] Not available Not available Not available penitentiary goal of HEP Compliance -[id number] Not available Not available Not available 03/17/2023 [id number] joint terminal attack controller goal of Pain Scale Not available Not available Not available joint terminal attack controller goal of Functional Scores -[id number] Not available Not available Not available joint terminal attack controller goal of Functional Scores -[id number] Not available Not available Not available penitentiary goal of Functional Scores -[id number] Not available Not available Not available joint terminal attack controller goal of HEP Compliance -[id number] Not available Not available Not available 08/25/2021 [id number] penitentiary goal of Pain Scale Not available Not available Not available joint terminal attack controller goal of Functional Scores -[id number] Not available Not available Not available penitentiary goal of Functional Scores -[id number] Not available Not available Not available penitentiary goal of Functional Scores -[id number] Not available Not available Not available penitentiary goal of HEP Compliance -[id number] Not available Not available Not available 08/18/2021 [id number] penitentiary goal of Pain Scale Not available Not available Not available joint terminal attack controller goal of Functional Scores -[id number] Not available Not available Not available penitentiary goal of Functional Scores -[id number] Not available Not available Not available penitentiary goal of Functional Scores -[id number] Not available Not available Not available joint terminal attack controller goal of HEP Compliance -[id number] Not available Not available Not available 04/30/2021 [id number] penitentiary goal of Pain Scale Not available Not available Not available penitentiary goal of Functional Scores -[id number] Not available Not available Not available penitentiary goal of Functional Scores -[id number] Not available Not available Not available joint terminal attack controller goal of Functional Scores -[id number] Not available Not available Not available penitentiary goal of HEP Compliance -[id number] Not available Not available Not available 03/30/2021 [id number] joint terminal attack controller goal of Pain Scale Not available Not available Not available penitentiary goal of Functional Scores -[id number] Not available Not available Not available penitentiary goal of Functional Scores -[id number] Not available Not available Not available joint terminal attack controller goal of Functional Scores -[id number] Not available Not available Not available penitentiary goal of HEP Compliance -[id number] Not available Not available Not available 07/25/2020 [id number] penitentiary goal of Pain Scale Not available Not available Not available joint terminal attack controller goal of Functional Scores -[id number] Not available Not available Not available joint terminal attack controller goal of Functional Scores -[id number] Not available Not available Not available joint terminal attack controller goal of Functional Scores -[id number] Not available Not available Not available joint terminal attack controller goal of HEP Compliance -[id number] Not available Not available Not available 07/18/2020 [id number] penitentiary goal of Pain Scale Not available Not available Not available penitentiary goal of Functional Scores -[id number] Not available Not available Not available penitentiary goal of Functional Scores -[id number] Not available Not available Not available joint terminal attack controller goal of Functional Scores -[id number] Not available Not available Not available joint terminal attack controller goal of HEP Compliance -[id number] Not available Not available Not available 06/26/2020 [id number] penitentiary goal of Pain Scale Not available Not available Not available joint terminal attack controller goal of Functional Scores -[id number] Not available Not available Not available penitentiary goal of Functional Scores -[id number] Not available Not available Not available joint terminal attack controller goal of Functional Scores -[id number] Not available Not available Not available penitentiary goal of HEP Compliance -[id number] Not available Not available Not available 05/26/2020 [id number] penitentiary goal of Pain Scale Not available Not available Not available joint terminal attack controller goal of Functional Scores -[id number] Not available Not available Not available joint terminal attack controller goal of Functional Scores -[id number] Not available Not available Not available joint terminal attack controller goal of Functional Scores -[id number] Not available Not available Not available penitentiary goal of HEP Compliance -[id number] Not available Not available Not available 11/26/2019 [id number] joint terminal attack controller goal of Pain Scale Not available Not available Not available joint terminal attack controller goal of Functional Scores -[id number] Not available Not available Not available penitentiary goal of Functional Scores -[id number] Not available Not available Not available penitentiary goal of Functional Scores -[id number] Not available Not available Not available joint terminal attack controller goal of HEP Compliance -[id number] Not available Not available Not available Pt will demonstrate decreased pain to 0/10 in 6 weeks to demonstrate improved functionPt will demonstrate improved tolerance to heel lifts in 6 weeks to demonstrate improved functionPt will demonstrate independence with HEP exercises in 6 weeks to demonstrate improved function Not available 06/21/2019 16:08:43 04/30/2019 [id number] penitentiary goal of Pain Scale Not available Not available Not available penitentiary goal of Functional Scores -[id number] Not available Not available Not available penitentiary goal of Functional Scores -[id number] Not available Not available Not available penitentiary goal of Functional Scores -[id number] Not available Not available Not available penitentiary goal of HEP Compliance -[id number] Not available Not available Not available 04/20/2019 [id number] joint terminal attack controller goal of Pain Scale Not available Not available Not available joint terminal attack controller goal of Functional Scores -[id number] Not available Not available Not available joint terminal attack controller goal of Functional Scores -[id number] Not available Not available Not available joint terminal attack controller goal of Functional Scores -[id number] Not available Not available Not available joint terminal attack controller goal of HEP Compliance -[id number] Not available Not available Not available 04/10/2019 [id number] penitentiary goal of Pain Scale Not available Not available Not available penitentiary goal of Functional Scores -[id number] Not available Not available Not available joint terminal attack controller goal of Functional Scores -[id number] Not available Not available Not available joint terminal attack controller goal of Functional Scores -[id number] Not available Not available Not available joint terminal attack controller goal of HEP Compliance -[id number] Not available Not available Not available Patient InstructionsNo instructions recorded. Reason for Referral None Reported. Problems Name Status Onset Date Resolution Date Notes Provider Name and Address Organization Details Recorded Time Pain of bilateral knee regions Active 2 SAM GA, SEO MANAGER [address] [facility], [address], [place], [address], [place] [facility] 04/07/2022 14:58:38 Hip pain Active 2 SAM GA, SEO MANAGER [address] [facility], [address], [place], [address], [place] [facility] 04/07/2022 14:58:38 Pain of right knee joint Active 3 [place] [address] [facility], [address], [place], [address], [place] [facility] 03/22/2023 12:59:57 Pain of right calf Active 3 [place] [address] [facility], [address], [place], [address], [place] [facility] 03/22/2023 13:00:07 Problem Notes None recorded. Procedures Surgical History Date Name Laterality Status Provider Name and Address Organization Details Recorded Time 9 24016:*[place] Total Billable [place] [address] [facility], [address], [place], [address], [place] [facility] 06/21/2019 15:57:58 9 30695: *[place]rapeutic [place] [address] [facility], [address], [place], [address], [place] [facility] 06/21/2019 16:03:04 9 91324 PT Evaluation Medium [place] [address] [facility], [address] [place], [address], [place] - [facility] 06/21/2019 15:58:01 9 96920:*[place] Total Billable [place] [address] [facility], [address], [address], [place] [facility] 04/30/2019 15:00:47 9 67709: *[place]rapeutic [place] [address] [facility], [address], [address], [place] [facility] 04/30/2019 16:11:22 9 50949:*[place] Total Billable [place] [address] [facility], [address], [address], [place] [facility] 04/20/2019 11:23:48 9 04431: *Therapeutic [place] [address] [facility], [address], [address], [place] - [facility] 04/20/2019 11:23:45 9 63038:*[place] Total Billable Treatment [place] [address] [facility], [address], [address], [place] [facility] 04/10/2019 19:19:21 9 14914: *Therapeutic Activities [place] [address] [facility], [address] [place], [address], [place] [facility] 04/10/2019 19:19:49 9 75740 PT Evaluation High [place] [address] [facility], [address] [place], [address], [place] [facility] 04/11/2019 21:14:37 8 04612:*[place] Total Billable [place] [address] [facility], [address], [place], [address], [facility] 05/02/2018 16:20:20 8 84188: Manual Therapy (1:1) [place] [address] [facility], [address], [place], [address], [facility] 05/02/2018 16:18:20 8 14830: *[place] [address] [facility], [address], [place], [address], [facility] 05/02/2018 16:18:20 8 89482 PT Evaluation Low [place] [address] [facility], [address], [place], [address], [facility] 05/02/2018 16:19:22 8 76891:*[place] Total Billable Treatment [place] [address] [facility], [address], [place], [address], [facility] 12/22/2017 23:07:06 8 86186: Manual Therapy (1:1) [place] [address] [facility], [address], [place], [address], [facility] 12/22/2017 23:06:19 8 22809: *Therapeutic [place] [address] [facility], [address], [place], [address], [facility] 12/22/2017 23:07:46 8 25503:*[place] Total Billable Treatment [place] [address] [facility], [address], [place], [address], [facility] 11/10/2017 23:01:20 8 25063: *Therapeutic [place] [address] [facility] [address], [address], [place], [address], [place] [facility] 11/10/2017 23:02:39 8 02578 PT Evaluation Medium [place] [address] [facility] [address], [address], [place], [address], [employer] [place] - [facility] 11/10/2017 23:01:02 7 68702:*[place] Total Billable [place] [address] [facility], [address], [place], [address], [employer] [place] [employer] [facility] 07/19/2017 10:23:22 7 48175: *[place] [address] [facility], [address], [place], [address], [place] [employer] 07/19/2017 10:34:03 7 84290:*[place] Total Billable [place] [address] [facility], [address], [place], [address], [place] [facility] 07/05/2017 12:39:48 7 29960: *[place]rapeutic [place] [address] [facility], [address], [place], [address], [employer] [place] - [facility] [employer] [facility] 07/05/2017 12:39:48 7 62406:*[place] Total Billable [place] [address] [facility], [address], [place], [address], [employer] [place] [employer] [facility] 06/23/2017 10:00:06 7 68818: *[place] [address] [address], [address], [place], [address], [facility] [place] [facility] 06/23/2017 10:38:06 7 [id number]:*[place] Total Billable [place] [address] [facility], [address], [address], [employer] 06/17/2017 13:54:00 7 64507: *[place] [address] [facility], [address], [address], [employer] [employer] 06/17/2017 13:56:21 7 [id number] PT Evaluation [place] [address] [facility], [address], [address], [facility] [employer] 06/17/2017 13:53:45 Imaging Results None recorded. Procedure Notes None recorded. Medical Equipment None Reported. Vitals None Recorded Social History Question Answer Notes LastModified by Organizat ion Details LastModified Time Tobacco Smoking Status Never Smoker [place] [employer] 06/20/2017 14:32:00 What Is Your Level Of Alcohol Consumption? None Information not available 06/20/2017 What Is Your Level Of Caffeine Consumption? Occasional Information not available 04/25/2023 Live Alone Or With Others? With Others Information not available 06/20/2017 Living Setting Stairs (no Railing) Information not available 06/20/2017 Are You Currently Receiving Or Seeking Disability For This Condition? No Information not available 06/20/2017 Do You Exercise Outside Of Normal Daily Activities? 5+days/wk Information not available 06/20/2017 Occupation Status Student Information not available 06/20/2017 Living Situation Home/apartment/c ondo Information not available 06/20/2017 Exercise, Sports/Recreati on Consisting Of Cross Country, Crossfit Information not available 06/20/2017 How Do You Rate Your General Health? Excellent Information not available 06/20/2017 Are You Seeing Any Other Health Care Providers Other Than The Physical Therapist For This Condition? No Information not available 06/20/2017 Previous Functional Level Independent In All Activities (work-community- home-recreation) Information not available 06/20/2017 What Was The Date Of Your Most Recent Tobacco Screening? 06/20/2017 Information not available 04/25/2023 General Stress Level Medium Information not available 06/20/2017 Sex: Female Functional Status None recorded. Mental Status None recorded. Family History Relationship Description Onset Age of this Age Resolved Age Notes Maternal Aunt Diabetes mellitus Maternal Grandfather Heart disease Paternal Grandfather Heart disease Maternal Grandmother Malignant neoplasti c disease Paternal Grandmother Malignant neoplasti c disease Unspecified Relation History of skin disorder Medical History No medical history recorded. Gynecological HistoryNo gynecological history recorded. Obstetrics History GPAL:G 0 P 0 0 0 0 Past Encounters Encounter ID Performer Location Encounter Start Date Encounter Closed Date Diagnosis/Indication Diagnosis SNOMED-CT Code [id number] Sander Sosa PT [facility] [address] [facility],[address] [address] 06/17/2017 11:04:23 06/17/2017 12:40:09 Hip pain [id number] Strain of muscle and/or tendon of thigh 020866044 [id number] Sander Sosa [facility] [address] [facility],[address] [address] 06/23/2017 09:58:47 06/23/2017 10:35:04 Hip pain 12262585 Strain of muscle and/or tendon of thigh 720225330 [id number] Sander Sosa PT [facility] [address] [facility],[address] [address] 07/05/2017 10:02:06 07/05/2017 10:48:18 Hip pain 52332027 Strain of muscle and/or tendon of thigh 623691666 [id number] Sander Sosa PT [facility] [address] [facility],[address] [address] 07/19/2017 09:56:50 07/19/2017 11:17:42 Hip pain 65721270 Strain of muscle and/or tendon of thigh 018204636 [id number] Solis Matthews [facility] [address] [place] [address] 11/10/2017 17:44:37 11/10/2017 18:38:29 Posterior oneal splints 061553223 [id number] Solis Matthews PT [facility] [address] [place] [address] 12/22/2017 11:16:57 12/22/2017 12:11:43 Posterior oneal splints 185144232 [id number] Sander Sosa, PT [facility] [address] [place] [address] 04/25/2018 20:00:59 04/25/2018 20:36:23 Posterior oneal splints 267560542 [id number] Fabby Felix PT [facility] [address] [facility] [place] [address] 04/10/2019 18:12:56 04/10/2019 19:09:57 Sprain of ankle 02966364 Ankle pain 260674219 [id number] Fabby Felix PT [facility] [address] [place] [address] 04/20/2019 10:03:15 04/20/2019 10:42:28 Sprain of ankle 58493816 Ankle pain 771842801 [id number] Fabby Felix PT [facility] [address] [facility] [place] [address] 04/30/2019 15:00:00 04/30/2019 16:42:20 Sprain of ankle 24648640 Ankle pain 614880664 [id number] Fabby Felix PT [facility] [address] [facility] [place] [address] 06/21/2019 11:59:44 06/21/2019 13:42:53 Left achilles tendonitis [id number] Fabby Felix PT [facility] [address] [place] [address] 11/26/2019 11:51:49 11/26/2019 12:38:24 Posterior oneal splints 184707830 [id number] Fabby Felix PT [facility] [address] [place] [address] 05/26/2020 15:56:24 05/26/2020 16:52:13 Ankle pain 461328302 [id number] Fabby Felix PT [facility] [address] [place] [address] 06/26/2020 11:22:20 06/26/2020 12:00:37 Ankle pain 377184810 [id number] Fabby Felix PT [facility] [address] [place] [address] 07/18/2020 12:41:26 07/18/2020 13:39:19 Ankle pain 575007471 [id number] Fabby Felix PT [facility] [address] [place] [address] 07/25/2020 10:40:12 07/25/2020 11:18:06 Ankle pain 860020562 [id number] Fabby Felix PT [facility] [address] [place] [address] 03/30/2021 15:01:01 03/30/2021 15:50:54 Ankle pain 046172296 Foot pain 00663921 Anterior oneal splints 20 4393600 [id number] Fabby Felix PT [facility] [address] [place] [address] 04/30/2021 18:03:27 04/30/2021 18:39:43 Ankle pain 761595961 Foot pain 32068338 Anterior oneal splints 20 4046923 [id number] Fabby Felix PT [facility] [address] [place] [address] 08/18/2021 14:00:12 08/18/2021 15:23:25 Pain of left hip joint [id number] Fabby Felix PT [facility] [address] [place] [address] 08/25/2021 12:30:13 08/25/2021 12:59:13 Pain of left hip joint [id number] Fabby Felix PT [facility] [address] [place] [address] 04/02/2022 17:28:30 04/02/2022 18:36:35 Hip pain 38853781 Pain of bi lateral knee regions [id number] SAM GA, SEO MANAGER [facility] [address] [place] [address] 04/06/2022 15:04:17 04/06/2022 16:30:01 Hip pain 03780569 Pain of bi lateral knee regions [id number] Fabby Felix PT [facility] [address] [place] [address] 04/20/2022 14:03:14 04/20/2022 14:59:51 Hip pain 25918257 Pain of bi lateral knee regions [id number] HARSH PAGE, PT [facility] [address] [place] [address] 03/17/2023 19:06:00 03/17/2023 20:01:26 Pain of right knee joint 951324095024057 Pain of right calf 27040 [id number] 3 [id number] HARSH PAGE, PT [facility] [address] [facility] [place] [address] 04/26/2023 12:02:45 04/26/2023 12:52:37 Pain of right knee joint 913001372926819 Pain of right calf 58578 [id number] 3 Health Concerns Section Related Observation LastModified by Organization Detai ls LastModified Time None Recorded Concern Status LastModified by Organization Details LastModified Time None Recorded Advance Directives Directive None Recorded Payers Encounter Date Sequence Insurance Name Policy Number Policy Murdock Covered Member ID Murdock Member ID Guarantor Name 04/26/2023 1 [employer] ([facility]) [id number] Reji Newby [id number] Tracy Shriner 03/17/2023 1 [employer] [id number] Reji Olsen Shriner [id number] Tracy Shriner 04/20/2022 1 [employer] [id number] Reji Mejiainer [id number] Tracy Shriner 04/06/2022 1 [employer] [id number] Reji Olsen Shriner [id number] Tracy Shriner 04/02/2022 1 [employer] [id number] Reji Olsen Shriner [id number] Tracy Shriner 08/25/2021 1 [employer] [id number] Reji Mejiainer [id number] Tracy Shriner 08/18/2021 1 [employer] [id number] Reji Mejiainer [id number] Tracy Shriner 04/30/2021 1 [employer] [id number] Reji Olsen Shriner [id number] Trayc Shriner 03/30/2021 1 [employer] [id number] Reji Mejiainer [id number] Tracy Shriner 07/25/2020 1 [employer] [id number] Reji Mejiainer [id number] Tracy Shriner 07/18/2020 1 [employer] [id number] Reji Mejiainer [id number] Tracy Shriner 06/26/2020 1 [employer] [id number] Reji Olsen Shriner [id number] Tracy Shriner 05/26/2020 1 [employer] [id number] Reji Olsen Shriner [id number] Tracy Shriner 11/26/2019 1 [employer] [id number] Reji Olsen Shriner [id number] Tracy Shriner 06/21/2019 1 [employer] [id number] Reji Olsen Shriner [id number] Tracy Shriner 04/30/2019 1 [employer] [id number] Reji Olsen Shriner [id number] Tracy Shriner 04/20/2019 1 [employer] [id number] Reji Olsen Shriner [id number] Tracy Shriner 04/10/2019 1 [employer] [id number] Reji Newby [id number] Tracy Mejiainer 04/25/2018 1 [employer] [id number] Reji Newby [id number] Tracy Mejiainer 12/22/2017 1 [employer] [id number] Reji Mejiainer [id number] Tracy Mejiainer 11/10/2017 1 [employer] [id number] Reji Mejiainer [id number] Tracy Mejiainer 07/19/2017 1 [employer] [id number] Reji Mejiainer [id number] Tracy Mejiainer 07/05/2017 1 [employer] [id number] Reji Newby [id number] Tracy Mejiainer 06/23/2017 1 [employer] [id number] Reji Newby [id number] Tracy Mejiainer 06/17/2017 1 [employer] [id number] Reji Newby [id number] Tracy Newby Notes Date Note Type Note Provider Name and Address Organization Details Recorded Time 06/17/2017 text/html HPI Notes: HPI Initial Eval Reported by patient. 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 Functional Scores: primary problem area: lower extremity; secondary problem area: ; Functional Index: current score90%; Patient-Specific Functional Scale Activity 1= running slow > 3 miles :Status 5; Patient-Specific Functional Scale Activity 2 = squatting :Status 4; Acuity: 16-30 Recreational Activities ? a ble to engage in most, but not all usual recreational/sports activities because of increased symptoms Lifting lift heavy weights, but it causes extra symptoms Stairs walk stairs comfortably, but with a crutch, [place] [address] [facility], [address], [address], [place] - [facility] 06/17/2017 14:03:10 06/23/2017 text/html HPI Notes: HPI Initial Eval Reported by patient. 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 Functional Scores: primary problem area: lower extremity; secondary problem area: ; Functional Index: current score90%; Patient-Specific Functional Scale Activity 1= running slow > 3 miles :Status 5; Patient-Specific Functional Scale Activity 2 = squatting :Status 4; Acuity: 16-30 Recreational Activities ? a ble to engage in most, but not all usual recreational/sports activities because of increased symptoms Lifting lift heavy weights, but it causes extra symptoms Stairs walk stairs comfortably, but with a crutch, [place] [address], [address], [place] [employer] [facility] 06/23/2017 10:38:19 07/05/2017 text/html HPI Notes: HPI Initial Eval Reported by patient. 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 Functional Scores: primary problem area: lower extremity; secondary problem area: ; Functional Index: current score90%; Patient-Specific Functional Scale Activity 1= running slow > 3 miles :Status 5; Patient-Specific Functional Scale Activity 2 = squatting :Status 4; Acuity: 16-30 Recreational Activities ? a ble to engage in most, but not all usual recreational/sports activities because of increased symptoms Lifting lift heavy weights, but it causes extra symptoms Stairs walk stairs comfortably, but with a crutch, [place] [address], [address], [employer] [place] [employer] 07/05/2017 12:41:20 07/19/2017 text/html HPI Notes: HPI Initial Eval Reported by patient. 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 Functional Scores: primary problem area: lower extremity; secondary problem area: ; Functional Index: current score90%; Patient-Specific Functional Scale Activity 1= running slow > 3 miles :Status 6; Patient-Specific Functional Scale Activity 2 = squatting :Status 7; Acuity: 16-30 Recreational Activities ? a ble to engage in most, but not all usual recreational/sports activities because of increased symptoms Lifting lift heavy weights, but it causes extra symptoms Stairs walk stairs comfortably, but with a crutch, [place] [address] [facility], [address], [address], [employer] [place] [employer] 07/19/2017 11:16:26 11/10/2017 text/html HPI Notes: HPI Initial Eval Reported by patient. Notes: pt is a very pleasant 17 yo female presenting to PT with R>L medial oneal pain and a return or R glut pain related to running. [employer] ramped up training faster than usual this year. gets worse with running. takes an hour to calm down. was limping [place] [address] [facility], [address], [address], [employer] 11/10/2017 23:04:57 12/22/2017 text/html HPI Notes: doing well, some new hip pain [place] [address] [facility], [address], [address], [employer] 12/22/2017 23:07:53 04/25/2018 text/html HPI Notes: HPI Initial Eval Reported by patient. Notes: pt is a very pleasant 17 yo female presenting to PT with R>L medial oneal pain and a return or R glut pain related to running. [employer]ne[employer] ramped up training faster than usual this year. gets worse with running. takes an hour to calm down. was limping due to pain yesterday. doing well, some new hip pain [place] [address] [facility], [address], [address], [employer] [employer] 05/02/2018 16:20:33 04/10/2019 text/html HPI Notes: PT Functional Assessment (Master) Reported by patient. Functional Scores: primary problem area: lower extremity; Functional Index: current score84%; Patient-Specific Functional Scale Activity 1= Running :Status 3; Patient-Specific Functional Scale Activity 2 = everyday life :Status 6; Patient-Specific Functional Scale Activity 3= walking: Status 6 Walking can walk up to a mile then limited by symptoms Work (Applies to work in home and outside) can do as much work as desired Personal Care (Washing, dressing, etc) manages all personal with some increased symptoms Sleeping no trouble sleeping Recreational Activities able to engage in a few usual recreational/sports activities because of increased symptoms Stairs walk more than 1 flight of stairs, but with increased symptoms Uneven Ground walk normally on uneven ground without loss of balance or use of a cane or crutches Standing stand as long as want, but with extra symptoms Squatting squat fully without the use of arms for support Sitting able to sit in any chair as long as wants Patient presents with hx of ankle pain that has worsened over the past two weeks. Pt reports she was at [employer] where she inversion rolled her ankle, felt fine the remainder of the run and camp, and came home and began to have to increased pain shortly after. Pt reports pain in outside foot and bottom of foot with walking. Has not been running due to pain. Patient? s main complaint is R ankle pain that is preventing patient from running. Past history contributing to this problem includes no hx of ankle sprains, no MRI or x-ray Patient is limited from running, walking without increased pain Patient preferred goals to return to prior level of function, to reduce ankle pain Systems review reveals blood pressure, heart rate, respiratory rate all within normal limits No imaging at this time No relevant work related, environmental, or physiological stresses that require further exam at this time No medications that could [place] to [place] [address], [address], [place] - [facility] 04/11/2019 21:23:44 04/20/2019 text/html HPI Notes: HPI D aily Reported by patient. Notes: Pt doing well. Reports that she is feeling improvement in walking, stairs, standing, weightbearing without increased pain. Compliance with HEP exercises. PT Functional Assessment (Master) Reported by patient. Functional Scores: primary problem area: lower extremity; Functional Index: current score84%; Patient-Specific Functional Scale Activity 1= Running :Status 3; Patient-Specific Functional Scale Activity 2 = everyday life :Status 6; Patient-Specific Functional Scale Activity 3= walking: Status 6 Walking can walk up to a mile then limited by symptoms Work (Applies to work in home and outside) can do as much work as desired Personal Care (Washing, dressing, etc) manages all personal with some increased symptoms Sleeping no trouble sleeping Recreational Activities able to engage in a few usual recreational/sports activities because of increased symptoms Stairs walk more than 1 flight of stairs, but with increased symptoms Uneven Ground walk normally on uneven ground without loss of balance or use of a cane or crutches Standing stand as long as want, but with extra symptoms Squatting squat fully without the use of arms for support Sitting able to sit in any chair as long as wants Patient presents with hx of ankle pain that has worsened over the past two weeks. Pt reports she was at [employer] where she inversion rolled her ankle, felt fine the remainder of the run and camp, and came home and began to have to increased pain shortly after. Pt reports pain in outside foot and bottom of foot with walking. Has not been running due to pain. Patient? s main complaint is R ankle pain that is preventing patient from running. Past history contributing to this problem includes no hx of ankle sprains, no MRI or x-ray Patient is limited from running, walking without increased pain Patient preferred goals to return to prior level of function, to reduce ankle pain Systems review reveals blood pressure, heart rate, respiratory rate all within normal limits No imaging at this time No relevant work related, environmental, or physiological stresses that require further exam at this time No medications that could [place] to [place] [address], [address], [place] - [facility] 04/20/2019 11:27:14 04/30/2019 text/html HPI Notes: HPI D lou Reported by patient. Notes: Pt doing well. Reports that she is no longer feeling pain except for mild discomfort with resisted ankle eversion. Compliance with HEP exercises. PT Functional Assessment (Master) Reported by patient. Functional Scores: primary problem area: lower extremity; Functional Index: current score84%; Patient-Specific Functional Scale Activity 1= Running :Status 3; Patient-Specific Functional Scale Activity 2 = everyday life :Status 6; Patient-Specific Functional Scale Activity 3= walking: Status 6 Walking can walk up to a mile then limited by symptoms Work (Applies to work in home and outside) can do as much work as desired Personal Care (Washing, dressing, etc) manages all personal with some increased symptoms Sleeping no trouble sleeping Recreational Activities able to engage in a few usual recreational/sports activities because of increased symptoms Stairs walk more than 1 flight of stairs, but with increased symptoms Uneven Ground walk normally on uneven ground without loss of balance or use of a cane or crutches Standing stand as long as want, but with extra symptoms Squatting squat fully without the use of arms for support Sitting able to sit in any chair as long as wants Patient presents with hx of ankle pain that has worsened over the past two weeks. Pt reports she was at [employer] where she inversion rolled her ankle, felt fine the remainder of the run and camp, and came home and began to have to increased pain shortly after. Pt reports pain in outside foot and bottom of foot with walking. Has not been running due to pain. Patient? s main complaint is R ankle pain that is preventing patient from running. Past history contributing to this problem includes no hx of ankle sprains, no MRI or x-ray Patient is limited from running, walking without increased pain Patient preferred goals to return to prior level of function, to reduce ankle pain Systems review reveals blood pressure, heart rate, respiratory rate all within normal limits No imaging at this time No relevant work related, environmental, or physiological stresses that require further exam at this time No medications that could be [place] to [place] [address], [address], [place] - [facility] 04/30/2019 16:13:18 06/21/2019 text/html HPI Notes: Patijuani nt presents with hx of left achilles pain and tenderness that began 06/13/2019 after patient reports she ran a hard workout. The pain is no longer sharp, but is more of a dull ache and hurts with running and walking. Is tender to the touch. Patient's main complaint is that he is not sure that she should continue to run with achilles pain. Has been running this week but states it may be getting worse Past history contributing to this problem includes R ankle sprain several months ago Patient is limited from running, walking, going up and down stairs, rising to and from sitting, squatting without increased pain Patient preferred goals to return to prior level of function, to decrease pain Systems review reveals blood pressure, heart rate, respiratory rate all within normal limits No imaging at this time No relevant work related, environmental, or physiological stresses that require further exam at this time No medications that could be [place] to [place] [address] [facility], [address], [address], [place] [employer] 06/21/2019 16:09:14 11/26/2019 text/html HPI Notes: Functional Assessment (Master) Reported by patient. Functional Scores: primary problem area: lower extremity; Functional Index: current score96%; Patient-Specific Functional Scale Activity 1= running :Status 9; Patient-Specific Functional Scale Activity 2 = household :Status 10 = Able to perform activity at preinjury level; Patient-Specific Functional Scale Activity 3= personal care: Status 10 = Able to perform activity at preinjury level Walking symptoms do not prevent walking any distance Work (Applies to work in home and outside) can do as much work as desired Personal Care (Washing, dressing, etc) manages all personal care without symptoms Sleeping sleep is mildly disturbed (less than 1 hr sleepless) Recreational Activities able to engage in all recreational/sports activities with some increased symptoms Stairs walk stairs comfortably without a rail Uneven Ground walk normally on uneven ground without loss of balance or use of a cane or crutches Standing stand as long as want without increased symptoms Squatting squat fully without the use of arms for support Sitting able to sit in any chair as long as wants Patient presents with hx of R oneal pain that has worsened over the past 2 weeks. Pt reports greatest pain in the morning, when she begins a run, or when she stops and restarts a run. Reports that her pain feels worse today than it has in the past. Patient? s main complaint is R oneal pain. Past history contributing to this problem includes hx of oneal splints, hx of R ankle sprain roughly 8 months ago Patient is limited from running at preferred level, performing speed work without increased pain Patient preferred goals to return to prior level of fxn, to decrease pain with running Systems review reveals blood pressure, heart rate, respiratory rate all within normal limits No imaging at this time No relevant work related, environmental, or physiological stresses that require further exam at this time No medications that could be [place] to [place] [id number] [facility], [address], [address], [employer] 11/26/2019 15:40:35 05/26/2020 text/html HPI Notes: Functional Assessment (Master) Reported by patient. Functional Scores: Patient-Specific Functional Scale Activity 1= when I run a lot, I feel ankle/foot pain :Status 7 Patient presents with R ankle pain that has worsened over the past couple of months. Pt reports that she was feeling discomfort on the inside foot area prior to taking a break. Pt reports it would come on slowly and then would stay throughout duration of run. Pt is training for a half marathon that she would like to run mid July. Patient? s main complaint is R ankle pain that worsens throughout duration of run. Onset began roughly one month ago. Past history contributing to this problem includes hx of R ankle pain after sprain several years ago, L achilles pain last year, and worsening R ankle pain. Patient is limited from running preferred mileage without increased pain Patient preferred goals to return to prior level of fxn, run half marathon in July Systems review reveals blood pressure, heart rate, respiratory rate all within normal limits No imaging at this time No relevant work related, environmental, or physiological stresses that require further exam at this time No medications that could be [place] [id number] [facility], [address], [address], [employer] 05/26/2020 23:49:54 06/26/2020 text/html HPI Notes: HPI D aily Reported by patient. Notes: Pt reports that everything except for her ankle is doing good. Pt reports that her ankle is bothering her outside of running at this time. Pt reports that that a couple of times she had a sharper pain in her medial tibia. Pt reports she is running 20-28 miles per week with a 9 mile run. Compliant with HEP exercises. Functional Assessment (Master) Reported by patient. Functional Scores: Patient-Specific Functional Scale Activity 1= when I run a lot, I feel ankle/foot pain :Status 7 Patient presents with R ankle pain that has worsened over the past couple of months. Pt reports that she was feeling discomfort on the inside foot area prior to taking a break. Pt reports it would come on slowly and then would stay throughout duration of run. Pt is training for a half marathon that she would like to run mid July. Patient? s main complaint is R ankle pain that worsens throughout duration of run. Onset began roughly one month ago. Past history contributing to this problem includes hx of R ankle pain after sprain several years ago, L achilles pain last year, and worsening R ankle pain. Patient is limited from running preferred mileage without increased pain Patient preferred goals to return to prior level of fxn, run half marathon in July Systems review reveals blood pressure, heart rate, respiratory rate all within normal limits No imaging at this time No relevant work related, environmental, or physiological stresses that require further exam at this time No medications that could be contributing [place] [id number] [facility], [address], [address], [place] - [employer] 06/26/2020 12:04:12 07/18/2020 text/html HPI Notes: HPI D senay Reported by patient. Notes: Pt reports that everything except for her ankle is bothering her quite a bit on her longer runs. Pt reports that her ankle hurts her at the beginning and then it really starts to hurt her at 3-4 miles. Compliant with all HEP exercises at this time. Functional Assessment (Master) Reported by patient. Functional Scores: Patient-Specific Functional Scale Activity 1= when I run a lot, I feel ankle/foot pain :Status 7 Patient presents with R ankle pain that has worsened over the past couple of months. Pt reports that she was feeling discomfort on the inside foot area prior to taking a break. Pt reports it would come on slowly and then would stay throughout duration of run. Pt is training for a half marathon that she would like to run mid July. Patient? s main complaint is R ankle pain that worsens throughout duration of run. Onset began roughly one month ago. Past history contributing to this problem includes hx of R ankle pain after sprain several years ago, L achilles pain last year, and worsening R ankle pain. Patient is limited from running preferred mileage without increased pain Patient preferred goals to return to prior level of fxn, run half marathon in July Systems review reveals blood pressure, heart rate, respiratory rate all within normal limits No imaging at this time No relevant work related, environmental, or physiological stresses that require further exam at this time No medications that could be [place] [id number] [facility], [address], [address], [employer] 07/18/2020 14:59:31 07/25/2020 text/html HPI Notes: HPI D aily Reported by patient. Notes: Pt reports that the tape really helped. Compliant with HEP exercises. Is running her half marathon on Tuesday. Functional Assessment (Master) Reported by patient. Functional Scores: Patient-Specific Functional Scale Activity 1= when I run a lot, I feel ankle/foot pain :Status 7 Patient presents with R ankle pain that has worsened over the past couple of months. Pt reports that she was feeling discomfort on the inside foot area prior to taking a break. Pt reports it would come on slowly and then would stay throughout duration of run. Pt is training for a half marathon that she would like to run mid July. Patient? s main complaint is R ankle pain that worsens throughout duration of run. Onset began roughly one month ago. Past history contributing to this problem includes hx of R ankle pain after sprain several years ago, L achilles pain last year, and worsening R ankle pain. Patient is limited from running preferred mileage without increased pain Patient preferred goals to return to prior level of fxn, run half marathon in July Systems review reveals blood pressure, heart rate, respiratory rate all within normal limits No imaging at this time No relevant work related, environmental, or physiological stresses that require further exam at this time No medications that could be contributing [place] [id number] [facility], [address], [address], [employer] 07/25/2020 11:21:36 03/30/2021 text/html HPI Notes: Functional Assessment (PSFS Master) Reported by patient. Functional Scores: Patient-Specific Functional Scale Activity 1= when I run a lot, I feel ankle/foot pain :Status 0 = unable to perform the activity; Patient-Specific Functional Scale Activity 2 = :Status Patient presents with hx of foot pain when she is walking and running. Pt reports that this has been going on since the of the month. Pt was running upwards of 25-30 miles/week. Pt reports that she is supposed to be at 30 miles per week. Pt reports that she was doing some weight training 3 days/week. She has also been doing yoga and stretching and has been swimming in the meantime. Pt has been wearing classic Mireya and has been using toes to pull up when walking. Patient? s main complaint is R foot extensor pain, pain with running. Onset began several weeks ago but has since worsened Past history contributing to this problem includes R oneal splints, R achilles pain and discomfort Patient is limited from running preferred mileage Patient preferred goals to decrease pain, return to prior level of fxn Systems review reveals blood pressure, heart rate, respiratory rate all within normal limits No imaging at this time No relevant work related, environmental, or physiological stresses that require further exam at this time No medications that could be [place] [id number] [facility], [facility] [address], [place], [address], [place] - [employer] 03/30/2021 16:40:38 04/30/2021 text/html HPI Notes: HPI D lou Reported by patient. Notes: Pt reports that her foot is feeling good. She went to the beach last week and didn't run a ton and is ranging between 20-25 miles/week. Compliant with HEP exercises. Functional Assessment (PSFS Master) Reported by patient. Functional Scores: Patient-Specific Functional Scale Activity 1= when I run a lot, I feel ankle/foot pain :Status 0 = unable to perform the activity; Patient-Specific Functional Scale Activity 2 = :Status Patient presents with hx of foot pain when she is walking and running. Pt reports that this has been going on since the of the month. Pt was running upwards of 25-30 miles/week. Pt reports that she is supposed to be at 30 miles per week. Pt reports that she was doing some weight training 3 days/week. She has also been doing yoga and stretching and has been swimming in the meantime. Pt has been wearing classic [employer] and has been using toes to pull up when walking. Patient? s main complaint is R foot extensor pain, pain with running. Onset began several weeks ago but has since worsened Past history contributing to this problem includes R oneal splints, R achilles pain and discomfort Patient is limited from running preferred mileage Patient preferred goals to decrease pain, return to prior level of fxn Systems review reveals blood pressure, heart rate, respiratory rate all within normal limits No imaging at this time No relevant work related, environmental, or physiological stresses that require further exam at this time No medications that could be contributing [place] [id number] [facility], [facility] [address], [place], [address], [place] - [employer] [facility] 04/30/2021 19:43:46 08/18/2021 text/html HPI Notes: Functional Assessment (PSFS Master) Reported by patient. Functional Scores: Patient-Specific Functional Scale Activity 1= walking w/o pain :Status 0 = unable to perform the activity; Patient-Specific Functional Scale Activity 2 = running :Status 0 = unable to perform the activity; Patient-Specific Functional Scale Activity 3= active range of motion with the leg: Status 0 = unable to perform the activity Patient presents with hx of L hip pain. Pt states that her L hip gets really irritated and angry after she runs. Pt reports that standing up and the first few steps are iffy and then it warms up a little bit. Pt states that it is mostly in her L hip and then sometimes into her back. Pt states that her L hip has been increasing pain for the past 3 weeks. She states that she felt okay during her half marathon two days ago. Pt reports that she states that it started as a small point of tenderness and then since has escalated. Pt states that now it feels more like the action of lifting her leg. Patient? s main compliant is L hip pain that is preventing patient from running. Her primary complaints are pain with WBing, groin pain, inability to run, etc. Onset began several weeks ago and has since progressed and not improved Past history contributing to this problem includes hx of L hip pain and back pain Patient is limited from performing preferred mileage and pain without increased pain Patient preferred goals to return to running Systems review reveals blood pressure, heart rate, respiratory rate all within normal limits No imaging at this time, but may be appropriate for imaging No relevant work related, environmental, or physiological stresses that require further exam at this time No medications that could be [place] [address] [address] [facility], [place] [address], [place], [address], [place] - [employer] 08/18/2021 17:07:29 08/25/2021 text/html HPI Notes: HPI D aily Reported by patient. Notes: Pt reports that the initial shock of standing up has gone away. Pt states she tried aqua jogging and ellipticalling and had no increased pain. Pt reports that she had some pain down through her thigh for a couple days. She got an x-ray and that was normal. Pt states that certain ways that she twists she feels it. She states that the exercises were okay but she stopped doing the bridges because those were irritating. Compliant with HEP exercises. Functional Assessment (PSFS Master) Reported by patient. Functional Scores: Patient-Specific Functional Scale Activity 1= walking w/o pain :Status 0 = unable to perform the activity; Patient-Specific Functional Scale Activity 2 = running :Status 0 = unable to perform the activity; Patient-Specific Functional Scale Activity 3= active range of motion with the leg: Status 0 = unable to perform the activity Patient presents with hx of L hip pain. Pt states that her L hip gets really irritated and angry after she runs. Pt reports that standing up and the first few steps are iffy and then it warms up a little bit. Pt states that it is mostly in her L hip and then sometimes into her back. Pt states that her L hip has been increasing pain for the past 3 weeks. She states that she felt okay during her half marathon two days ago. Pt reports that she states that it started as a small point of tenderness and then since has escalated. Pt states that now it feels more like the action of lifting her leg. Patient? s main compliant is L hip pain that is preventing patient from running. Her primary complaints are pain with WBing, groin pain, inability to run, etc. Onset began several weeks ago and has since progressed and not improved Past history contributing to this problem includes hx of L hip pain and back pain Patient is limited from performing preferred mileage and pain without increased pain Patient preferred goals to return to running Systems review reveals blood pressure, heart rate, respiratory rate all within normal limits No imaging at this time, but may be appropriate for imaging No relevant work related, environmental, or physiological stresses that require further exam at this time No medications that could be [place] [address] [facility], [address], [address], [place] [employer] 08/25/2021 13:59:37 04/02/2022 text/html HPI Notes: Functional Assessment (PSFS Master) Reported by patient. Functional Scores: Patient-Specific Functional Scale Activity 1= running :Status 2; Patient-Specific Functional Scale Activity 2 = exercise :Status 2; Patient-Specific Functional Scale Activity 3= strength training: Status 2 Patient presents with hx of hip pain with walking/running. Pt has been doing some swimming, some HIIT workouts, climbing, and then just wanting to get back into running. Pt reports that she has had a couple of knee things but she thinks it comes from really tight IT bands, but this goes away when she rolls. Pt states that she gets tightness on both sides if she doesn't do some stretching, but stretching does seem to manage. Pt states that her knees are feeling a bit achy, mostly on outside and then sometimes inside. Patient? s main complaint is B knee and B hip pain. Onset began several years ago and has been coming and going as patient continues to try and get back into running Past history contributing to this problem includes hx of B hip pain that sounds to be attributed to hip flexor Patient is limited from running at preferred mileage without increasing discomfort Patient preferred goals to return to preferred mileage without increased discomfort, without risk of reinjury Systems review reveals blood pressure, heart rate, respiratory rate all within normal limits No imaging at this time No relevant work related, environmental, or physiological stresses that require further exam at this time No medications that could be [place] to [place] [id number] [facility], [address], [address], [place] [employer] 04/02/2022 18:34:22 04/20/2022 text/html HPI Notes: HPI D aily Reported by patient. Notes: Pt reports feeling tired from a 100 mile bike ride. She has not began running again, but will progress these after going through lifts moving forward. Pt is leaving on May 14 for school. Compliant with HEP exercises. Functional Assessment (PSFS Master) Reported by patient. Functional Scores: Patient-Specific Functional Scale Activity 1= running :Status 2; Patient-Specific Functional Scale Activity 2 = exercise :Status 2; Patient-Specific Functional Scale Activity 3= strength training: Status 2 Patient presents with hx of hip pain with walking/running. Pt has been doing some swimming, some HIIT workouts, climbing, and then just wanting to get back into running. Pt reports that she has had a couple of knee things but she thinks it comes from really tight IT bands, but this goes away when she rolls. Pt states that she gets tightness on both sides if she doesn't do some stretching, but stretching does seem to manage. Pt states that her knees are feeling a bit achy, mostly on outside and then sometimes inside. Patient? s main complaint is B knee and B hip pain. Onset began several years ago and has been coming and going as patient continues to try and get back into running Past history contributing to this problem includes hx of B hip pain that sounds to be attributed to hip flexor Patient is limited from running at preferred mileage without increasing discomfort Patient preferred goals to return to preferred mileage without increased discomfort, without risk of reinjury Systems review reveals blood pressure, heart rate, respiratory rate all within normal limits No imaging at this time No relevant work related, environmental, or physiological stresses that require further exam at this time No medications that could be [place] to [place] [id number] [facility], [place] [address], [place], [address], [place] - [facility] [facility] 04/20/2022 15:49:45 03/17/2023 text/html HPI Notes: HPI Initial Eval V.2 Reported by patient. Notes: Pt arrives complaining of R calf pain that she is having a hard time pinpointing. She has also recently been working through some oneal splints. She ran a half marathon on the March 08 which ended well. She has not ran since the half marathon, she has been biking instead. Running hurts the most when she starts, then it starts warming up but if she pauses during the run it hurts when she feels it again. Hurts in the mornings as well. Sometimes will hurt throughout the day as well. The weird calf pain/oneal pain has started for 3 weeks. She had started biking when the calf pain started. 20-25miles/week she went on an 11-12mile run in early February. She was having oneal splints. Nothing helps it feel better. Ran today went okay, she felt like it was affecting her gait, towards the end however felt like it was warming up. 25 minute run today. Hx of oneal splints, bilat hip flexor strain, L knee pain, R ankle sprain 5-6 years ago, sometimes bothers her still. Lower back/upper hip pain on the R side, L foot tendonitis, and an achilles tendinopathy on the R side. Sometimes has tingling in her calves in December and January that caused her feet falling asleep with running. Goes to school in [place], she is about about to go to [place] for biking next week, for 1 week. She is going to [place] for studying abroad. Functional Assessment (PSFS Master) Reported by patient. Functional Scores: Patient-Specific Functional Scale Activity 1= Run :Status 3; Patient-Specific Functional Scale Activity 2 = Bike :Status 3; Patient-Specific Functional Scale Activity 3= Squat: Status 2 [place] [address], [address], [place] - [facility] 03/22/2023 13:01:58 04/26/2023 text/html HPI Notes: HPI D aily Reported by patient. Notes: The calf has been better, it does not get worse with running. She has not been doing HEP. Looking for advice on running programming and injury prevention. Running goals are to be able to run 30 miles/week without pain. Is currently running 20-25 miles per week. Running 6 days/week. HPI Initial Eval V.2 Reported by patient. Notes: Pt arrives complaining of R calf pain that she is having a hard time pinpointing. She has also recently been working through some oneal splints. She ran a half marathon on the March 08 which ended well. She has not ran since the half marathon, she has been biking instead. Running hurts the most when she starts, then it starts warming up but if she pauses during the run it hurts when she feels it again. Hurts in the mornings as well. Sometimes will hurt throughout the day as well. The weird calf pain/oneal pain has started for 3 weeks. She had started biking when the calf pain started. 20-25miles/week she went on an 11-12mile run in early February. She was having oneal splints. Nothing helps it feel better. Ran today went okay, she felt like it was affecting her gait, towards the end however felt like it was warming up. 25 minute run today. Hx of oneal splints, bilat hip flexor strain, L knee pain, R ankle sprain 5-6 years ago, sometimes bothers her still. Lower back/upper hip pain on the R side, L foot tendonitis, and an achilles tendinopathy on the R side. Sometimes has tingling in her calves in December and January that caused her feet falling asleep with running. Goes to school in [place], she is about about to go to [place] for biking next week, for 1 week. She is going to [place] for studying abroad. Functional Assessment (PSFS Master) Reported by patient. Functional Scores: Patient-Specific Functional Scale Activity 1= Run :Status 3; Patient-Specific Functional Scale Activity 2 = Bike :Status 3; Patient-Specific Functional Scale Activity 3= Squat: Status 2 [place] [id number], [address], [place] - [facility] 04/26/2023 16:30:01 OBGyn Episode No OBEpisode recorded.
--- OUTSIDE RECORDS SUMMARY | 2024-01-21 06:36 | XMS_ITS | Clinical Summary ---
Author Name Unknown Organization [facility] Address [address] [facility] [address] Care Team Providers Care Mosaic Tile Maker Name Role Phone Kathleen Coelhoin Primary Care Provider Unavailab le Source Comments PLEASE NOTE, if this patient is a minor, it may be UNLAWFUL to discuss sensitive information that is contained in these records (such as FAMILY PLANNING, MENTAL HEALTH or SUBSTANCE ABUSE) with the minor patient's parent or other person without the patient's specific authorization.[facility] Allergies Active Allergy Reactions Criticality Noted Date Comments No Known Allergies 05/15/2014 Medications Medication Sig Dispensed Refills Start Date End Date Status therapeutic multivitamin-minerals (THERAGRAN-M) 27-0.4 mg per tablet Take 1 Tab by mouth once daily 02/02/2017 Active albuterol sulfate 90 mcg/actuation inhaler TAKE 2 PUFFS (WITH SPACER) 15 MINUTES PRIOR TO EXERCISE; CAN ALSO USE 2 PUFFS EVERY 4 HRS NEEDED COUGH/WHEEZE 05/31/2019 Active chlorhexidine gluconate (PERIDEX) 0.12 % solution FILL CAPSULE TO THE FILL LINE (15 ML). SWISH IN MOUTH UNDILUTED FOR 30 SECONDS THEN SPIT OUT. USE AFTER BREAKFAST AND BEFORE BEDTIME. 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 Immunizations Name Administration Dates Next Due Flu, Multi Dose 08/24/2019,07/27/2017 HEP B, PED/ADOL 2002 HPV 9 08/15/2015 HPV, QUADRIVALENT 05/15/2014 Family History Medical History Relation Name Comments Thyroid Disease Sister hypothyroidi sm Relation Name Status Comments Sister Social History Tobacco Use Types Packs/Day Years Used Date Smoking Tobacco: Never Smokeless Tobacco: Never Alcohol Use Standard Drinks/Week Comments No 0 (1 standard drink = 0.6 oz pur e alcohol) Social Connections Answer Date Recorded Social Connections and Isolation 0 04/29/2019 Financial Resource Strain Answer Date R ecorded Financial Resource Strain 0 2018 Stress Answer Date Recorded Stress 0 04/29/2019 Physical Activity Answer Date Recorded Physical Activity 0 04/29/2019 Food Insecurity Answer Date Recorded Food 0 04/29/2019 Transportation Needs Answer Date Record ed Transportation 0 04/29/2019 Housing Stability Answer Date Recorded Housing 0 04/29/2019 Safety and Environment Answer Date [place] rded Safety 0 04/29/2019 Utilities Answer Date Recorded Utilities 0 04/29/2019 Employment Answer Date Recorded Employment 0 04/29/2019 Sex and Gender Information Value Date Recorded Sex Assigned at Not on file Gender Identity Not on file Sexual Orientation Not on file Last Filed Vital Signs Vital Sign Reading Time Taken Comments Blood Pressure 107/67 08/24/2019 11:44 AM PST Pulse 76 08/24/2019 11:44 AM PST Temperature 36.1 ??C (96.9 ??F) 08/24/2019 11:[address] Respiratory Rate - - Oxygen Saturation 98% 08/24/2019 11:44 AM PST Inhaled Oxygen Concentration - - Weight 54 kg (119 lb) 08/24/2019 11:44 AM PST Height 155 cm (5' 1.02) 07/27/2017 8:59 AM PST Body Mass Index - - Plan of Treatment Not on file Insurance Payer Benefit Plan / Group Subscriber ID Effective Dates Phone Address Type [employer] PPO PLAN [id number] 2017-Present [phone] [address] [address] [place] [address] PPO Care Teams Mosaic Tile Maker Relationship Specialty Start Date End Date Evonne Coelho PCP - General 02/02/17
--- OUTSIDE RECORDS SUMMARY | 2024-01-21 06:36 | XMS_ITS | Data Portability ---
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 [email or web address] Not available 06/10/2020 13:14:46 07/15/2020 07/15/2020 20 yo presents for IUD check -IUD in correct position -Taught how to check for IUD strings -Discussed that if menses continue to be heavy and painful w/ Paraguard IUD, consider switching to Mirena IUD. -RTC 1yr or PRN *The above patient was seen by a provider under my supervision and I agree with the assessment and plan. [email or web address] Not available 07/23/2020 17:42:25 03/24/2021 03/24/2021 21 yo G0 presents for well woman exam w/ complaint of heavier menses w/ Paraguard -Pelvic and breast exam benign -IUD strings visualized, we discussed Paraguard likely cause of heavy bleeding. Mirena IUD may be a better option for menorrhagia. She will think about this -RTO 1yr or PRN Not available 03/24/2021 17:06:40 04/28/2021 04/28/2021 21 yo G0 here for Paraguard removal and Mirena IUD insertion. -PARQ held, consent signed, Paraguard IUD removed without difficulty -Mirena IUD inserted under US guidance, arms noted to be open and at the fundus afterwards, knows to check for strings -RTO 1yr for WWE or PRN Not available 04/30/2021 15:57:37 Plan of Treatment Reminders Order Date Submit Date Provider Last Modified By Organization Details Last Modified Time Details Appointments None recorded. Lab test, urine 2019 020 [email or web address] In-House Test, For Internal Use Only, Do Not Delete/merge, [id number] 0 13:16:03 Referral None recorded. Procedures None recorded. Surgeries None recorded. Imaging None recorded. Medication Orders Mirena 21 mcg/24 hr (up to 8 years) 52 mg intrauteri ne device 2020 021 [email or web address] Not available 14:25:32 ParaGard T 380A 380 square mm intrauteri ne device 2019 020 [email or web address] Not available 0 16:52:37 Patient TargetsNo targets recorded. Patient Instructions Encounter Date Encounter Id Patient Instructions Last Modified By Organization Details Last Modified Time 04/28/2021 [id number] heavy menstrual periods: care instructions Not available 04/30/2021 15:58:29 03/24/2021 [id number] heavy menstrual periods: care instructions Not available 03/24/2021 17:06:41 07/15/2020 [id number] painful menstrua l cramps in teens: care instructions Not available 07/15/2020 14:48:22 06/10/2020 [id number] intrauterine device (IUD) insertion: care instructions [email or web address] Not available 06/10/2020 13:16:03 Paragard placed without difficulty The risks, benefits, alternatives, and indications for IUDs were discussed with the patient. She knows that IUDs have a small but existent risk of failure (ie ) and that symptoms of should prompt immediate medical attention. I also quoted a risk of 09/999 for IUD migration, and <1% risk of infection or uterine perforation. Once full informed consent was obtained, IUD was placed. She was taught how to check for strings. [email or web address] Not available 06/10/2020 13:15:15 11/05/2019 [id number] heavy menstrual periods: care instructions [email or web address] Not available 11/06/2019 12:34:06 Reason for Referral None Reported. Results Created Date Observation Date Name Description Value Unit Range Abnormal Flag LastModifiedBy Organization Detail LastModifiedTime 06/10/20 20 06/10/2020 pregn alonso test, urine HCG negati ve Not Available In-House Test For Internal Use Only, Do Not Delete/merge, [id number] 06/10/2020 13:01:20 04/28/20 21 04/28/2021 ultra sound image s RAD DAGOBERTO Your In-Ho use [employer] Machine [id number] 05/06/2021 09:21:18 04/28/20 21 [email or web address] ASTUDILLO No observ ation record ed. BARCODE Not Available 04/28/2021 13:44:18 Result Notes None recorded. Problems No Known Problems Procedures Surgical History Date Name Laterality Status Provider Name and Address Organization Details Recorded Time 1 IUD Insertion completed Dominik Chase DO [address] [place] [address], [phone], [facility] 04/30/2021 15:52:42 1 IUD Removal completed Dominik Chase DO [address] [place] [address], [phone], [facility] 04/30/2021 15:52:29 0 IUD Insertion completed Leydi Sheehan DO [address] [place] [address] [address], [place], [address], [place] - [facility] 06/10/2020 13:14:37 extraction of wisdom tooth completed Ellie cason [place] - [facility] 11/05/2019 15:06:28 Imaging Results Imaging Date Name Status LastModified by Organiz ation Details LastModified Time 04/28/2021 ultrasound images completed DAGOBERTO Your In-House [employer] [id number] 05/06/2021 09:21:18 04/28/2021 US, guidance completed BARCODE Information not available 04/28/2021 13:44:18 Procedure Notes None recorded. Medical Equipment None Reported. Allergies No known drug allergies Medications Name Sig Start Date Stop Date Status Note LastModified by Organization Details LastModified Time Mirena 21 mcg/24 hr (up to 8 years) 52 mg intrauterin e device 1 device now 2020 active 871 Not Available Not Available Not Avai lable ibuprofen 800 mg tablet 11/04 completed Not Available Not Available Not Available hydrocodone 5 mg-acetamin ophen 325 mg tablet 11/04 completed Not Available Not Available Not Available amoxicillin 500 mg tablet 11/04 completed Not Available Not Available Not Available oxycodone-a cetaminophe n 7.5 mg-325 mg tablet 11/04 completed Not Available Not Available Not Available albuterol sulfate HFA 90 mcg/actuati on aerosol inhaler active Not Available Not Available Not Available ondansetron 4 mg disintegrat ing tablet 11/04 completed Not Available Not Available Not Available ParaGard T 380A 380 square mm intrauterin e device Take 1 device by intrauter ine route. 2019 active Not Available Not Available Not Avai lable chlorhexidi ne gluconate 0.12 % mouthwash 11/04 completed Not Available Not Available Not Available ID NOW COVID-19 Test Kit TEST DIRECTED active Not Available Not Available No t Available COVID-19 test specimen collection TEST DIRECTED active Not Available Not Available No t Available Flublok Quad (PF) 180 mcg (45 mcg x 4)/0.5 mL IM syringe active Not Available Not Available N ot Available Vitals Date Recorded Body height Body mass index (BMI) Percentile per age and sex Body mass index (BMI) Body weight Systolic blood pressure Diastolic blood pressure Provider Name and Address Organization Details Last Updated DateTime 0 154.94 cm 71 % 23.2 kg/m2 38371.8 6 g 92 mm[Hg] 52 mm[Hg] Ellie Fischerley [facility] 0 15:08:05 Date Recorded Body height Body mass index (BMI) Percentile per age and sex Body mass index (BMI) Body weight Systolic blood pressure Diastolic blood pressure Provider Name and Address Organization Details Last Updated DateTime 0 154.94 cm 75 % 24 kg/m2 28036.9 5 g 102 mm[Hg] 62 mm[Hg] Rosalinda Bustos [facility] 0 13:01:47 Date Recorded Body height Body mass index (BMI) Percentile per age and sex Body mass index (BMI) Body weight Systolic blood pressure Diastolic blood pressure Provider Name and Address Organization Details Last Updated DateTime 0 154.94 cm 72 % 23.5 kg/m2 79148.6 1 g 110 mm[Hg] 60 mm[Hg] lauro Arash [facility] 0 13:46:40 Date Recorded Body height Body mass index (BMI) Body mass index (BMI) Percentile per age and sex Body weight Systolic blood pressure Diastolic blood pressure Provider Name and Address Organization Details Last Updated DateTime 1 154.94 cm 24.4 kg/m2 76 % 49812.4 2 g 118 mm[Hg] 68 mm[Hg] [facility] 1 16:43:23 Date Recorded Body height Body mass index (BMI) Body mass index (BMI) Percentile per age and sex Body weight Systolic blood pressure Diastolic blood pressure Provider Name and Address Organization Details Last Updated DateTime 1 154.94 cm 25.1 kg/m2 80 % 44538.7 9 g 110 mm[Hg] 60 mm[Hg] [facility] 1 13:03:04 Social History Question Answer Notes LastModified by Organizat ion Details LastModified Time Tobacco Smoking Status Never Smoker Ellie Kwok kamla, [place] - [facility] 11/05/2019 15:05:30 What Is Your Level Of Alcohol Consumption? None Information not available 11/05/2019 Is Blood Transfusion Acceptable In An Emergency? Yes Information not available 11/05/2019 Which Illicit Or Recreational Drugs Have You Used? No Information not available 11/05/2019 Do You Or Have You Ever Used E-cigarettes Or Vape? 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 No Information not available 11/05/2019 Marital Status Single Informatio n not available 11/05/2019 What Was The Date Of Your Most Recent Tobacco Screening? 03/24/2021 [email or web address] Information not available 03/24/2021 Are You Sexually Active? No Never Been Active [email or web address] Information not available 06/10/2020 Do You Or Have You Ever Used Smokeless Tobacco? Never Used Smokeless Tobacco Information not available 11/05/2019 How Much Tobacco Do You Smoke? No Information not available 11/05/2019 Sex: Female Functional Status Question Answer Note LastModified by Organization D etails LastModified Time What is your exercise level? Moderate Information not available 11/05/2019 Mental Status None recorded. Family History Relationship Description Onset Age of this Age Resolved Age Notes Maternal Aunt Diabetes mellitus Maternal Grandmother Malignant tumor of breast 70 Maternal Grandmother Heart disease Paternal Grandmother Malignant tumor of breast Sister Disorder of thyroid gland Medical History Condition Response Allergies/Hayfever N Diabetes N Anesthesia complications N Other N Migraine N Infertility N Renal Disease/Bladder problems N Cancer N Anxiety/depression/mood Y GI Problems N Defects or Inherited Disease N Connective Tissue Disorders N ANDREAS Exposure N Thyroid/Endocrine N Anemia N Endometriosis N Neurologic Disease N Asthma/lung disease Y Hepatitis N Heart Disease N DVT/Clotting Disorders N Hypertension N Chicken Pox N Gynecological History Statement/Question Response G 0 N/A Date of LMP 03/13/2021 Frequency of Cycle (Q days) 30 date of last Pap Duration of Flow (days) 7 Age at Menarche 15 Current Control Method Abstinence STD history? N/A Obstetrics History GPAL:G 0 P 0 0 0 0 Immunizations Vaccine Type Date Status Provider Name and Address Organization Details Recorded Time MMR 01/24/2007 completed Enoch Luna [place] [id number] [place] [address], [address], [address] [place] [address], [facility] 11/05/2019 16:00:04 pneumococcal conjugate PCV 7 2002 completed Enoch Luna MD [address] [place] [address], [address] [place] [address], [facility] 11/05/2019 16:00:04 IPV 2002 completed Enoch Luna MD [address] [place] [address], [address] [place] [address], [facility] 11/05/2019 16:00:04 pneumococcal conjugate PCV 7 01/25/2003 completed Enoch Luna MD [address] [place] [address], [address] [place] [address], [facility] 11/05/2019 16:00:04 Novel [id number] 08/15/2009 completed Enoch Luna MD [address] [place] [address], [address] [place] [address], [facility] 11/05/2019 16:00:04 HPV, quadrivalent 05/15/2014 completed Not Available [facility] 02/23/2020 04:31:43 meningococcal MCV4P 05/24/2019 completed Enoch salmeron [place] [id number] [place] [address], [address], [address] [place] [address], [facility] 11/05/2019 16:00:04 influenza, split (incl. purified surface antigen) 08/15/2006 completed Enoch Luna MD [id number] [place] [address], [address], [address], [facility] 11/05/2019 16:00:04 Tdap 04/10/2013 completed Enoch Luna MD [id number] [place] [address], [address], [address], [facility] 11/05/2019 16:00:04 Hib-Hep B 2002 completed Enoch Luna MD [address] [place] [address], [address], [address], [facility] 11/05/2019 16:00:04 influenza, injectable, quadrivalent 08/24/2016 completed Not Available [facility] 02/23/2020 04:31:43 pneumococcal conjugate PCV 7 2002 completed Enoch Luna MD [address] [place] [address], [address], [address], [facility] 11/05/2019 16:00:04 DTaP 08/20/2003 completed Enoch Luna MD [address] [place] [address], [address], [address], [facility] 11/05/2019 16:00:04 meningococcal MCV4P 04/10/2013 completed Enoch salmeron MD [address] [place] [address], [address], [address], [facility] 11/05/2019 16:00:04 influenza, injectable, quadrivalent 08/15/2015 completed Not [facility] 02/23/2020 04:31:43 Hep A, ped/adol, 2 dose 09/15/2005 completed Enoch Luna MD [address] [place] [address], Arm[place] [address] [place] [address], [address], [facility] 11/05/2019 16:00:04 DTaP 2002 completed Enoch Luna MD [address] [place] [address], [address], [address], [facility] 11/05/2019 16:00:04 influenza, injectable, quadrivalent, preservative free 05/15/2014 completed Not Available [facility] 0 04:31:43 influenza, live, intranasal, quadrivalent 04/10/2013 completed Enoch Luna MD [address] [place] [address], [address], [address], [facility] 11/05/2019 16:00:04 influenza, injectable, quadrivalent 07/27/2017 completed Not Available [facility] 02/23/2020 04:31:43 MMR 01/25/2003 completed Enoch Luna MD [address] [place] [address], [address], [address], [facility] 11/05/2019 16:00:04 typhoid, oral 05/29/2013 completed Enoch Luna MD [address] [place] [address], [address], [address], [facility] 11/05/2019 16:00:04 varicella 01/25/2003 katherine Luna MD [address] [place] [address], [address], [address], [facility] 11/05/2019 16:00:04 Hep A, ped/adol, 2 dose 08/15/2006 katherine Luna MD [address] [place] [address], [address], [address], [facility] 11/05/2019 16:00:04 pneumococcal conjugate PCV 7 2002 katherine Luna MD [address] [place] [address], [address], [address], [facility] 11/05/2019 16:00:04 Hib-Hep B 01/25/2003 katherine Luna MD [address] [place] [address], [address], [address], [facility] 11/05/2019 16:00:04 Hep B, unspecified formulation 2002 katherine Luna MD [address] [place] [address], [address], [address], [facility] 11/05/2019 16:00:04 MMR 09/20/2017 completed Enoch Luna MD [id number] [place] [address], [address] [place] [address], [address], [facility] 11/05/2019 16:00:04 DTaP 2002 completed Enoch Luna MD [id number] [place] [address], [address] [place] [address], [address], [facility] 11/05/2019 16:00:04 influenza, injectable, quadrivalent 08/24/2019 completed Not Available [facility] 02/23/2020 04:31:43 DTaP 2002 completed Enoch Luna MD [id number] [place] [address], [address], [address], [facility] 11/05/2019 16:00:04 Influenza, seasonal, injectable 07/18/2010 completed Enoch Luna MD [id number] [place] [address], [address] [place] [address], [address], [facility] 11/05/2019 16:00:04 HPV9 08/15/2015 completed Not Available [facility] 04:31:43 IPV 01/25/2003 completed Enoch Luna MD [id number] [place] [address], [address], [address], [facility] 11/05/2019 16:00:04 DTaP 01/24/2007 completed Enoch Luna MD [id number] [place] [address], [address] [place] [address], [address], [facility] 11/05/2019 16:00:04 Novel [id number] 10/03/2009 completed Enoch Luna MD [address] [place] [address], [address] [address] [place] [address], [address], [facility] 11/05/2019 16:00:04 IPV 2002 completed Enoch Luna MD [id number] [place] [address], [address], [address] [place] [address], [facility] 11/05/2019 16:00:04 varicella 01/24/2007 completed Enoch Luna MD [address] [place] [address], [address], [facility] 11/05/2019 16:00:04 IPV 01/24/2007 completed Enoch Luna MD [address] [place] [address], [address] [place] [address], [facility] 11/05/2019 16:00:04 influenza, split (incl. purified surface antigen) 08/16/2003 completed Enoch Luna MD [address] [place] [address], [address] [place] [address], [facility] 11/05/2019 16:00:04 influenza, split (incl. purified surface antigen) 08/10/2004 completed Enoch Luna MD [address] [place] [address], [address] [place] [address], [facility] 11/05/2019 16:00:04 meningococcal MCV4P 05/24/2019 [facility]/10[facility]2020 13:01:51 Past Encounters Encounter ID Performer Location Encounter Start Date Encounter Closed Date Diagnosis/Indication Diagnosis SNOMED-CT Code [id number] MD JEREMY Castro [address], [address] [address] 11/05/2019 14:49:51 11/07/2019 19:51:57 Menorrhagia [id number] DO JEREMY Maya [address], [facility] [address] [place] [address] 06/10/2020 12:50:46 06/10/2020 13:28:02 Insertion of intrauterine contraceptive device 93128513 Urine preg fabby test negative [id number] Leydi Scherer Aguila, DO [address], [address] [facility] [place] [address] 07/15/2020 13:37:11 07/15/2020 15:33:17 IUD check [id number] Dysmenorrhea [id number] Dominik EscalonaRavin Chase, DO [address], [address] [place] [address] 03/24/2021 16:33:17 03/24/2021 18:06:01 Gynecologic examination [id number] IUD check [id number] Menorrhagia [id number] Monyhood Chase, DO [address], [place] [facility] [place] [address] 04/28/2021 12:57:53 04/30/2021 19:33:47 Replacement of intrauterine contraceptive device 56628115 Menorrhagia [id number] Health Concerns Section Related Observation LastModified by Organization Detai ls LastModified Time None Recorded Concern Status LastModified by Organization Details LastModified Time None Recorded Advance Directives Directive None Recorded Payers Encounter Date Sequence Insurance Name Policy Number Policy Murdock Covered Member ID Murdock Member ID Guarantor Name 04/28/2021 1 [employer] [id number] Reji Newby [id number] 03/24/2021 1 [employer] [id number] Reji Newby [id number] 07/15/2020 1 [employer] [id number] Reji Newby [id number] 06/10/2020 1 [employer] [id number] Reji Newby [id number] 11/05/2019 1 [employer] [id number] Reji Newby [id number] Notes Date Note Type Note Provider Name and Address Organization Details Recorded Time 11/05/2019 text/html HPI Notes: 19 yo here to discuss her periods. Last yr they were quite irregular although was in in [place] on exchange. Had it 3 times in [place] over 10 mo. Maybe only had a couple of periods. HOwever since back home, periods have been about every 35 days. +moliminal sx's. Got her period when she was 15, have always been longer cycles. Recnt periods have been pretty heavy, first 1-4 days changing tampon every 1-2 hours or they leak a little. Some cramping, takes ibuprofen Enoch Luna MD [address] [place] [address], [address], [address] [place] [address], [facility] 11/06/2019 12:34:15 06/10/2020 text/html HPI Notes: IUD insertion Reported by patient. Notes: here for paragard. discussed with Dr. Luna. R/B reviewed again. not on period. has never been sexually active. Leydi Sheehan, [address] [place] [address], [address], [address] [place] [address], [facility] 06/10/2020 13:15:55 07/15/2020 text/html HPI Notes: 20 yo virginal female presents for follow up of Paraguard IUD insertion placed one month ago. She reports hx of heavy menses and states her menses this month has been similar. She wanted to get an IUD placed before she moved away for college. Denies pain from it. She is not yet aware of how to do IUD string checks. Leydi Sheehan DO [address] [place] [address], [address], [address] [place] [address], [facility] 07/23/2020 17:42:35 03/24/2021 text/html HPI Notes: 21 yo G0 female presents for well woman exam. Has Paraguard IUD in place but has been having heavier, longer and more painful periods since starting it. Didn't have this before.. Interested in Mirena IUD. Going to college in April at [employer]. Denies any medical problems. Dominik Chase, [address] [place] [address], [address], [address] [place] [address], [facility] 03/24/2021 17:07:00 04/28/2021 text/html HPI Notes: 21 yo G0 presents for Paraguard removal and Mirena IUD insertion. 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 [place] [address] [facility], [place] [address], [place], [address], [facility] - [facility] 04/30/2021 16:02:51 OBGyn Episode No OBEpisode recorded.
[2024-01-21 06:38] LABS: Bacteria Urine Few; RBC Urine 0-2 (0-2); Squamous Epithelial Cell Urine Few (None-Few); Ur HCG Qualitative* Negative (Negative); WBC Urine 0-2 (0-5)
[2024-01-21 06:39] LABS: Slide Review Reflex No
[2024-01-21 06:46] LABS: Chloride* 106 mmol/L (96-114); Potassium* 4.2 mmol/L (3.6-5.1); Sodium* 140 mmol/L (135-149)
[2024-01-21 06:49] LABS: Creatinine* 0.6 mg/dL (0.5-1.5); Est. Creatinine Clearance* 111.92; Estimated Glomerular Filt Rate 131 ml/min
[2024-01-21 06:50] LABS: Anion Gap 8 mEq/L (7-15); Blood Urea Nitrogen* 14 mg/dL (5-24); Calcium* 8.8 mg/dL (8.4-10.6); Carbon Dioxide* 26 mmol/L (20-32); Glucose* 109 mg/dL (60-115)
--- NOTE | 2024-01-21 07:51 | US_ITS ---
Patient: MAC ODOM Facility:?[facility] Patient ID:?[id number] Site Patient ID:?[id number] Site :?[id number] Study:?US-Pelvis PELVIS TV-01/21/2024 8:54:51 AM Ordering Physician:?SALBADOR CLARK M.D. Final Report: INDICATION: Pelvic pain, pelvic fluid and possible adnexal cyst. COMPARISON: CT earlier today. FINDINGS: Uterus is anteverted and measures 7.4 x 4.0 x 5.1 cm. There is an and IUD appears appropriately positioned within the uterus. Right ovary appears normal. Left ovary contains an irregular 4.1 x 3.3 x 1.4 cm complex cyst with internal echogenicity compatible with a collapsing hemorrhagic cyst/corpus luteum. Both ovaries have normal color and spectral Doppler flow. Small moderate free fluid in the pelvis. IMPRESSION: 1. Left ovarian corpus luteum or hemorrhagic cyst with small a moderate pelvic free fluid. 2. No right adnexal mass. Dictated by Umer Kaba MD @ 01/21/2024 9:11:14 AM Signed by:?Umer Kaba MD @01/21/2024 9:11:14 AM (Electronic Signature)
== END 2024-01-21 09:13 | disposition home or self-care (01) ==
PROVIDERS: Emergency Provider Family Medicine
DX: N83.202 Unspecified ovarian cyst, left side (principal); K66.1 Hemoperitoneum
CPT/HCPCS: 36415; 74177; 76830; 80048; 81001; 81025; 84703; 85025; 87086; 93976; 96374; 96375; 99284; 99285; J1885; J2405; Q9967